=== PATIENT | female | born 1960 | race Caucasian/White ===

== ENCOUNTER → 2017-11-23 | Outpatient (CLI) | payer MEDICARE, OTHER ==
[~2017-11-23] MED LIST: ALBU3IS INH; ALBU90OI INH; ALBU90OI6 INH; ALBU90OI61 INH; AMIT25 PO; ARIP10 PO; ASPI81CH PO; ATIVAN; Albuterol2.5 MG/0.5 HHN; Amlodipine Bes2.5 MG PO; Ativan1 MG PO; BECL80OI INH; BENZ100A PO; BIEST TOP; Bactrim Ds Tab1 EACH PO; CARI350 PO; CITA20 PO; CLON.1 PO; CLON.2TP TP; CYCL10 PO; DILANTIN; DIPATR PO; DOCU100 PO; ESCI10 PO; Estrace Vagin42.5 GM VAG; FAMO20 PO; FLUSAL2505 IH; FLUT.05NI; HYDACE5 PO; HYDMOR2 PO; HYOS0.375T PO; IBUP600 PO; K-Dur20 MEQ PO; LANS30EC PO; LEVFLO500 PO; LEVSOD125 PO; LEVSOD50 PO; LEVSOD88 PO; LOMOTIL; LOPE2EL PO; LORA1 PO; LORA2 PO; Lomotil Tablet1 EACH PO; MECL25 PO; MEDICAL MARIJUANA; METCAR500 PO; METCAR750 PO; METO10 PO; METO25 PO; METO25ER PO; METO50 PO; METOPROLOL PO; MORP30 PO; MORP30ER PO; MORP60ER PO; NITR.4SL SL; NITRO; NITRSPRAY SL; Nitroglycerin0.4 MG SL; OMEP40CA12 PO; OXYACE7.5T PO; OXYB5 PO; OXYC10TA19 PO; OXYC5 PO; PHENY100ER PO; PRAZ1 PO; PRAZ2 PO; PRED20 PO; PREG50 PO; PROCODE120 PO; PROM25 PO; PROMETHAZINE; Prednisone20 MG PO; Symbicort 16010.2 GM IH; THIA100 PO; TRAZ150T57 PO; TRAZ50 PO; Toprol Xl25 MG PO; VAGIFEM10 MCG VAG; VENL150ER PO; Vibramycin100 MG PO; Zithromax250 MG PO; Zofran8 MG PO; [UNRECOGNIZED DRUG - OTHER]
[2017-11-23 13:27] LABS: Source, Urine Clean Catch
[2017-11-23 16:09] LABS: Bilirubin, Urine Neg (Neg); Blood, Urine Neg (Neg); Glucose Qualitative, Urine Neg (Neg); Ketones, Urine Neg (Neg); Leukocyte Esterase, Urine 1+ (Neg); Nitrite, Urine Neg (Neg); Protein, Urine Neg (Neg); Urobilinogen, Urine NORM (Normal); pH, Urine 6.5 (5.0-8.0)
[2017-11-23 16:14] LABS: Appearance, Urine Clear (Clear); Color, Urine Yellow (P-Yellow)
[2017-11-23 16:16] LABS: Bacteria Few /hpf; Red Blood Cells, Urine 0-2 /hpf (0-2); Squamous Epithelial Cells Few /hpf (Few)
== END | disposition home or self-care (01) ==
LOC: OLS 13:24
PROVIDERS: Internal Medicine
DX: N39.0 Urinary tract infection, site not specified (principal)
CPT/HCPCS: 81001; 87086

== ENCOUNTER 2017-11-24 05:35 | Emergency (ER) | payer MEDICARE, OTHER ==
[~2017-11-24] VITALS: Ht 154.9 cm; Wt 60.8 kg
[~2017-11-24 05:35] MED LIST changes: -ALBU3IS INH; -ALBU90OI6 INH; -Amlodipine Bes2.5 MG PO; -Ativan1 MG PO; -Bactrim Ds Tab1 EACH PO; -Estrace Vagin42.5 GM VAG; -IBUP600 PO; -K-Dur20 MEQ PO; -Lomotil Tablet1 EACH PO; -Nitroglycerin0.4 MG SL; -PREG50 PO; -THIA100 PO; -VAGIFEM10 MCG VAG; -VENL150ER PO
[2017-11-24] MEDS ORDERED: Bactrim Ds Tab1 EACH PO (06:12)
[2017-11-24] MEDS ORDERED: PREG50 PO (06:14)
[2017-11-24 07:04] LABS: Source, Urine Clean Catch
[2017-11-24 07:06] LABS: Bilirubin, Urine Neg (Neg); Blood, Urine Neg (Neg); Glucose Qualitative, Urine Neg (Neg); Ketones, Urine Neg (Neg); Leukocyte Esterase, Urine Neg (Neg); Nitrite, Urine Neg (Neg); Protein, Urine Neg (Neg); Specific Gravity, Urine 1.015 (1.003-1.022); Urobilinogen, Urine NORM (Normal)
[2017-11-24 07:12] LABS: Appearance, Urine Clear (Clear); Color, Urine Yellow (P-Yellow)
[2017-11-24 07:36] LABS: BASOPHILS ABSOLUTE AUTO 0.01 K/mm3 (0.00-0.23); BASOPHILS PERCENT AUTO 0 % (0-2); EOSINOPHILS ABSOLUTE AUTO 0.14 K/mm3 (0.00-0.68); EOSINOPHILS PERCENT AUTO 2 % (0-6); Hematocrit 38.5 % (33.0-51.0); Hemoglobin 13.1 g/dL (11.5-16.0); IMMATURE GRAN ABSOLUTE AUTO 0.01 K/mm3 (0.00-0.10); IMMATURE GRAN PERCENT AUTO 0 % (0-1); LYMPHOCYTES ABSOLUTE AUTO 0.45 K/mm3 (0.84-5.20); LYMPHOCYTES PERCENT AUTO 6 % (21-46); MONOCYTES ABSOLUTE AUTO 0.65 K/mm3 (0.16-1.47); MONOCYTES PERCENT AUTO 8 % (4-13); Mean Corpuscular HGB 29.8 pg (26.0-34.0); Mean Corpuscular Volume 88 fL (80-100); Mean Platelet Volume 11.4 fL (9.1-12.4); NEUTROPHILS ABSOLUTE AUTO 6.97 K/mm3 (1.96-9.15); NEUTROPHILS PERCENT AUTO 85 % (41-73); Platelet Count 143 K/mm3 (150-400); RDW Coefficient Variation 15.2 % (11.7-14.2); RDW Standard Deviation 49.1 fL (35.1-46.3); Red Blood Cell Count 4.39 M/mm3 (3.80-5.20); White Blood Cell Count 8.23 K/mm3 (4.00-11.30)
[2017-11-24 07:54] LABS: Alanine Aminotransfer (ALT/SGP 32 U/L (12-78); Albumin, Blood 3.7 g/dL (3.4-5.0); Albumin/Globulin Ratio 0.9 (0.8-1.8); Alk Phos 109 U/L (50-136); Anion Gap 8 mmol/L (6-16); Aspartate Aminotrans (AST/SGOT 27 U/L (12-37); Bilirubin, Total 0.5 mg/dL (0.1-1.0); Blood Urea Nitrogen 13 mg/dL (8-24); Bun/Creatinine Ratio 14.8 (12.0-20.0); CO2, Blood 25 mmol/L (21-32); Calcium, Blood 8.6 mg/dL (8.5-10.1); Chloride, Blood 99 mmol/L (98-108); Creatinine, Blood 0.88 mg/dL (0.40-1.00); Globulin, Blood 4.1 g/dL (2.2-4.0); Glomerular Filtration Rate >60 (60-); Glucose, Blood 112 mg/dL (70-99); Potassium, Blood 3.9 mmol/L (3.5-5.5); Sodium, Blood 132 mmol/L (136-145); Total Protein, Blood 7.8 g/dL (6.4-8.2)
[2018-09-03] MEDS ORDERED: METO25ER PO (10:47)
[2018-09-03] MEDS ORDERED: Amlodipine Bes2.5 MG PO (10:49)
[2018-09-03] MEDS ORDERED: K-Dur20 MEQ PO (10:50)
[2018-09-03] MEDS ORDERED: THIA100 PO (10:50)
[2018-09-03] MEDS ORDERED: PRAZ1 PO (10:51)
[2018-09-03] MEDS ORDERED: Estrace Vagin42.5 GM VAG (10:53)
[2018-09-03] MEDS ORDERED: VAGIFEM10 MCG VAG (10:53)
== END 2017-11-24 09:50 | disposition home or self-care (01) ==
LOC: ER 05:35
PROVIDERS: Emergency Medicine
DX: R51 Headache (principal); I10 Essential (primary) hypertension; K21.9 Gastro-esophageal reflux disease without esophagitis; J43.9 Emphysema, unspecified; F17.200 Nicotine dependence, unspecified, uncomplicated; Z90.710 Acquired absence of both cervix and uterus; Z88.0 Allergy status to penicillin; Z88.6 Allergy status to analgesic agent; Z88.5 Allergy status to narcotic agent; Z79.899 Other long term (current) drug therapy
CPT/HCPCS: 36415; 80053; 81003; 85025; 96360; 99283; J7030

== ENCOUNTER 2017-12-24 22:37 | Inpatient (IN) | payer MEDICARE, OTHER ==
[~2017-12-24] VITALS: Ht 154.9 cm; Wt 64.4 kg
[~2017-12-24 22:37] MED LIST changes: +Bactrim Ds Tab1 EACH PO; +PREG50 PO
[2017-12-25] LABS: BASOPHILS ABSOLUTE AUTO 0.04 K/mm3 (0.00-0.23); BASOPHILS PERCENT AUTO 1 % (0-2); EOSINOPHILS ABSOLUTE AUTO 0.14 K/mm3 (0.00-0.68); EOSINOPHILS PERCENT AUTO 2 % (0-6); Hematocrit 34.3 % (33.0-51.0); Hemoglobin 11.6 g/dL (11.5-16.0); IMMATURE GRAN ABSOLUTE AUTO 0.02 K/mm3 (0.00-0.10); IMMATURE GRAN PERCENT AUTO 0 % (0-1); LYMPHOCYTES ABSOLUTE AUTO 1.01 K/mm3 (0.84-5.20); LYMPHOCYTES PERCENT AUTO 12 % (21-46); MONOCYTES ABSOLUTE AUTO 0.54 K/mm3 (0.16-1.47); MONOCYTES PERCENT AUTO 6 % (4-13); Mean Corpuscular HGB 29.7 pg (26.0-34.0); Mean Corpuscular HGB Conc 33.8 g/dL (31.5-36.5); Mean Corpuscular Volume 88 fL (80-100); Mean Platelet Volume 11.3 fL (9.1-12.4); NEUTROPHILS ABSOLUTE AUTO 6.98 K/mm3 (1.96-9.15); NEUTROPHILS PERCENT AUTO 80 % (41-73); Platelet Count 117 K/mm3 (150-400); RDW Coefficient Variation 14.6 % (11.7-14.2); RDW Standard Deviation 46.9 fL (35.1-46.3); White Blood Cell Count 8.73 K/mm3 (4.00-11.30)
[2017-12-25 00:10] LABS: Source, Urine Catheter
[2017-12-25 00:10] LABS: International Normalized Ratio 1.06
[2017-12-25 00:13] LABS: Bilirubin, Urine Neg (Neg); Blood, Urine 1+ (Neg); Glucose Qualitative, Urine Neg (Neg); Ketones, Urine Neg (Neg); Leukocyte Esterase, Urine Neg (Neg); Nitrite, Urine Neg (Neg); Protein, Urine 1+ (Neg); Urobilinogen, Urine NORM (Normal)
[2017-12-25 00:19] LABS: Appearance, Urine Clear (Clear); Color, Urine Yellow (P-Yellow)
[2017-12-25 00:20] LABS: PCO2 Arterial 41.3 mmHg (35-45); PO2 Arterial 66.5 mmHg (80-100); pH Blood Arterial 7.41 (7.35-7.45)
[2017-12-25 00:20] LABS: Bacteria Mod /hpf; Red Blood Cells, Urine 0-2 /hpf (0-2); Squamous Epithelial Cells Not Seen /hpf (Few); White Blood Cells, Urine 0-2 /hpf (0-5)
[2017-12-25 00:21] LABS: Alanine Aminotransfer (ALT/SGP 41 U/L (12-78); Albumin, Blood 3.7 g/dL (3.4-5.0); Albumin/Globulin Ratio 0.8 (0.8-1.8); Alk Phos 102 U/L (50-136); Anion Gap 10 mmol/L (6-16); Aspartate Aminotrans (AST/SGOT 58 U/L (12-37); Bilirubin, Total 0.8 mg/dL (0.1-1.0); Blood Urea Nitrogen 13 mg/dL (8-24); Bun/Creatinine Ratio 17.2 (12.0-20.0); CO2, Blood 27 mmol/L (21-32); CPK Creatine Kinase 98 U/L (26-193); Calcium, Blood 8.6 mg/dL (8.5-10.1); Chloride, Blood 96 mmol/L (98-108); Creatinine, Blood 0.76 mg/dL (0.40-1.00); Ethanol (Alcohol), Blood, Med <3 mg/dL; Globulin, Blood 4.4 g/dL (2.2-4.0); Glomerular Filtration Rate >60 (60-); Glucose, Blood 102 mg/dL (70-99); Potassium, Blood 3.5 mmol/L (3.5-5.5); Salicylate 2.5 mg/dL (2.8-20.0); Sodium, Blood 133 mmol/L (136-145); Total Protein, Blood 8.1 g/dL (6.4-8.2); Troponin I <0.015 ng/mL (0.000-0.040)
[2017-12-25 00:25] LABS: Acetaminophen, Random <2.0 ug/mL (10.0-30.0); Dilantin (Phenytoin), Total <0.4 ug/mL (10.0-20.0)
[2017-12-25 00:28] LABS: U Amphetamine Screen Not Detected; U Barbituate Screen Not Detected; U Benzodiazapine Screen DETECTED; U Methamphetamine Screen Not Detected
[2017-12-25 00:29] LABS: U Buprenorphine Screen Not Detected; U Cannabinoids Screen DETECTED; U Cocaine Screen Not Detected; U Methadone Screen Not Detected; U Opiates Screen DETECTED; U Oxycodone Screen DETECTED; U Phencyclidine Screen Not Detected; U Propoxyphene Screen Not Detected
[2017-12-25 00:43] LABS: Influenza A Negative (NEGATIVE); Influenza B Negative (NEGATIVE)
[2017-12-25] MEDS ORDERED: VENL150ER PO (01:58)
[2017-12-25] MEDS ORDERED: IBUP600 PO (02:05)
[2017-12-25 12:18] LABS: Hematocrit 34.7 % (33.0-51.0); Hemoglobin 11.9 g/dL (11.5-16.0); Mean Corpuscular HGB 29.8 pg (26.0-34.0); Mean Corpuscular HGB Conc 34.3 g/dL (31.5-36.5); Mean Corpuscular Volume 87 fL (80-100); RDW Coefficient Variation 14.3 % (11.7-14.2); RDW Standard Deviation 46.1 fL (35.1-46.3); White Blood Cell Count 10.61 K/mm3 (4.00-11.30)
[2017-12-25 12:20] LABS: BASOPHILS ABSOLUTE AUTO 0.03 K/mm3 (0.00-0.23); BASOPHILS PERCENT AUTO 0 % (0-2); EOSINOPHILS ABSOLUTE AUTO 0.03 K/mm3 (0.00-0.68); EOSINOPHILS PERCENT AUTO 0 % (0-6); IMMATURE GRAN ABSOLUTE AUTO 0.04 K/mm3 (0.00-0.10); IMMATURE GRAN PERCENT AUTO 0 % (0-1); LYMPHOCYTES ABSOLUTE AUTO 1.11 K/mm3 (0.84-5.20); LYMPHOCYTES PERCENT AUTO 11 % (21-46); MONOCYTES ABSOLUTE AUTO 0.81 K/mm3 (0.16-1.47); MONOCYTES PERCENT AUTO 8 % (4-13); NEUTROPHILS ABSOLUTE AUTO 8.45 K/mm3 (1.96-9.15); NEUTROPHILS PERCENT AUTO 81 % (41-73)
[2017-12-25 12:23] LABS: Mean Platelet Volume 11.8 fL (9.1-12.4); Platelet Count 127 K/mm3 (150-400)
[2017-12-25 12:38] LABS: Alanine Aminotransfer (ALT/SGP 39 U/L (12-78); Albumin, Blood 3.3 g/dL (3.4-5.0); Albumin/Globulin Ratio 0.7 (0.8-1.8); Alk Phos 93 U/L (50-136); Anion Gap 9 mmol/L (6-16); Aspartate Aminotrans (AST/SGOT 40 U/L (12-37); Bilirubin, Total 0.8 mg/dL (0.1-1.0); Blood Urea Nitrogen 8 mg/dL (8-24); Bun/Creatinine Ratio 13.5 (12.0-20.0); CO2, Blood 27 mmol/L (21-32); Calcium, Blood 8.4 mg/dL (8.5-10.1); Chloride, Blood 101 mmol/L (98-108); Creatinine, Blood 0.59 mg/dL (0.40-1.00); Globulin, Blood 4.7 g/dL (2.2-4.0); Glomerular Filtration Rate >60 (60-); Glucose, Blood 118 mg/dL (70-99); Sodium, Blood 137 mmol/L (136-145)
[2017-12-26 05:06] LABS: BASOPHILS ABSOLUTE AUTO 0.01 K/mm3 (0.00-0.23); BASOPHILS PERCENT AUTO 0 % (0-2); EOSINOPHILS ABSOLUTE AUTO 0.01 K/mm3 (0.00-0.68); EOSINOPHILS PERCENT AUTO 0 % (0-6); Hemoglobin 12.8 g/dL (11.5-16.0); IMMATURE GRAN ABSOLUTE AUTO 0.02 K/mm3 (0.00-0.10); IMMATURE GRAN PERCENT AUTO 0 % (0-1); LYMPHOCYTES ABSOLUTE AUTO 1.33 K/mm3 (0.84-5.20); LYMPHOCYTES PERCENT AUTO 15 % (21-46); MONOCYTES ABSOLUTE AUTO 0.78 K/mm3 (0.16-1.47); MONOCYTES PERCENT AUTO 9 % (4-13); Mean Corpuscular HGB 29.6 pg (26.0-34.0); Mean Corpuscular HGB Conc 34.6 g/dL (31.5-36.5); Mean Corpuscular Volume 86 fL (80-100); Mean Platelet Volume 11.8 fL (9.1-12.4); NEUTROPHILS ABSOLUTE AUTO 6.53 K/mm3 (1.96-9.15); NEUTROPHILS PERCENT AUTO 75 % (41-73); Platelet Count 141 K/mm3 (150-400); RDW Coefficient Variation 13.9 % (11.7-14.2); RDW Standard Deviation 43.8 fL (35.1-46.3); Red Blood Cell Count 4.33 M/mm3 (3.80-5.20); White Blood Cell Count 8.68 K/mm3 (4.00-11.30)
[2017-12-26 05:22] LABS: Anion Gap 12 mmol/L (6-16); Blood Urea Nitrogen 6 mg/dL (8-24); CO2, Blood 24 mmol/L (21-32); Calcium, Blood 9.2 mg/dL (8.5-10.1); Chloride, Blood 98 mmol/L (98-108); Creatinine, Blood 0.54 mg/dL (0.40-1.00); Glomerular Filtration Rate >60 (60-); Glucose, Blood 120 mg/dL (70-99); Potassium, Blood 2.8 mmol/L (3.5-5.5); Sodium, Blood 134 mmol/L (136-145)
[2017-12-27 05:24] LABS: BASOPHILS ABSOLUTE AUTO 0.02 K/mm3 (0.00-0.23); BASOPHILS PERCENT AUTO 0 % (0-2); EOSINOPHILS ABSOLUTE AUTO 0.09 K/mm3 (0.00-0.68); EOSINOPHILS PERCENT AUTO 1 % (0-6); Hematocrit 34.8 % (33.0-51.0); Hemoglobin 12.1 g/dL (11.5-16.0); IMMATURE GRAN ABSOLUTE AUTO 0.02 K/mm3 (0.00-0.10); IMMATURE GRAN PERCENT AUTO 0 % (0-1); LYMPHOCYTES PERCENT AUTO 24 % (21-46); MONOCYTES ABSOLUTE AUTO 0.87 K/mm3 (0.16-1.47); MONOCYTES PERCENT AUTO 11 % (4-13); Mean Corpuscular HGB 30.2 pg (26.0-34.0); Mean Corpuscular HGB Conc 34.8 g/dL (31.5-36.5); Mean Corpuscular Volume 87 fL (80-100); Mean Platelet Volume 11.9 fL (9.1-12.4); NEUTROPHILS ABSOLUTE AUTO 5.04 K/mm3 (1.96-9.15); NEUTROPHILS PERCENT AUTO 63 % (41-73); Platelet Count 144 K/mm3 (150-400); RDW Coefficient Variation 14.2 % (11.7-14.2); RDW Standard Deviation 45.5 fL (35.1-46.3); Red Blood Cell Count 4.01 M/mm3 (3.80-5.20); White Blood Cell Count 7.94 K/mm3 (4.00-11.30)
[2017-12-27 05:51] LABS: Anion Gap 9 mmol/L (6-16); Blood Urea Nitrogen 9 mg/dL (8-24); Bun/Creatinine Ratio 11.7 (12.0-20.0); CO2, Blood 24 mmol/L (21-32); Calcium, Blood 8.7 mg/dL (8.5-10.1); Chloride, Blood 100 mmol/L (98-108); Creatinine, Blood 0.77 mg/dL (0.40-1.00); Glomerular Filtration Rate >60 (60-); Glucose, Blood 150 mg/dL (70-99); Magnesium, Blood 1.7 mg/dL (1.6-2.4); Potassium, Blood 3.1 mmol/L (3.5-5.5); Sodium, Blood 133 mmol/L (136-145)
[2017-12-27] MEDS ORDERED: LEVFLO500 PO (10:26)
[2018-09-03] MEDS ORDERED: METO25ER PO (10:47)
[2018-09-03] MEDS ORDERED: Amlodipine Bes2.5 MG PO (10:49)
[2018-09-03] MEDS ORDERED: K-Dur20 MEQ PO (10:50)
[2018-09-03] MEDS ORDERED: THIA100 PO (10:50)
[2018-09-03] MEDS ORDERED: PRAZ1 PO (10:51)
[2018-09-03] MEDS ORDERED: VAGIFEM10 MCG VAG (10:53)
[2018-09-03] MEDS ORDERED: Estrace Vagin42.5 GM VAG (10:53)
== END 2017-12-27 10:54 | disposition home or self-care (01) | DRG 871 ==
LOC: ER 22:37 → ICUW 12-25 00:33 → ICUE 12-25 00:33 → MEDS 12-25 12:21 → ENPENDDIS 12-27 09:00 → MEDS 12-27 10:54
PROVIDERS: Emergency Medicine; Internal Medicine
DX: A41.9 Sepsis, unspecified organism (principal); J18.9 Pneumonia, unspecified organism; G93.40 Encephalopathy, unspecified; F19.10 Other psychoactive substance abuse, uncomplicated; R65.20 Severe sepsis without septic shock; E87.6 Hypokalemia; I10 Essential (primary) hypertension; J44.9 Chronic obstructive pulmonary disease, unspecified; E03.9 Hypothyroidism, unspecified; K21.9 Gastro-esophageal reflux disease without esophagitis; G89.29 Other chronic pain; F17.210 Nicotine dependence, cigarettes, uncomplicated; Z74.09 Other reduced mobility; Z88.6 Allergy status to analgesic agent; Z88.5 Allergy status to narcotic agent; Z88.0 Allergy status to penicillin; Z88.8 Allergy status to other drugs, medicaments and biological substances; Z79.899 Other long term (current) drug therapy
CPT/HCPCS: 36415; 36600; 51702; 70450; 71045; 74176; 80048; 80053; 80185; 81001; 81025; 82140; 82550; 82803; 83605; 83735; 84145; 84443; 84484; 85025; 85610; 85730; 87040; 87086; 87804; 93005; 93010; 94640; 94667; 94668; 94760; 96360; 97116; 97161; 99285; G0480; G8978; G8979; J0696; J1630; J1650; J1956; J2405; J3010; J7030; J7040

== ENCOUNTER 2018-01-05 18:25 | Inpatient (IN) | payer MEDICARE, OTHER ==
[~2018-01-05] VITALS: Ht 154.9 cm; Wt 61.4 kg
[~2018-01-05 18:25] MED LIST changes: +IBUP600 PO; +VENL150ER PO
[2018-01-05 19:52] LABS: BASOPHILS ABSOLUTE AUTO 0.06 K/mm3 (0.00-0.23); BASOPHILS PERCENT AUTO 1 % (0-2); EOSINOPHILS ABSOLUTE AUTO 0.18 K/mm3 (0.00-0.68); EOSINOPHILS PERCENT AUTO 2 % (0-6); Hematocrit 38.3 % (33.0-51.0); Hemoglobin 12.8 g/dL (11.5-16.0); IMMATURE GRAN ABSOLUTE AUTO 0.05 K/mm3 (0.00-0.10); IMMATURE GRAN PERCENT AUTO 0 % (0-1); LYMPHOCYTES ABSOLUTE AUTO 2.62 K/mm3 (0.84-5.20); LYMPHOCYTES PERCENT AUTO 22 % (21-46); MONOCYTES ABSOLUTE AUTO 0.85 K/mm3 (0.16-1.47); MONOCYTES PERCENT AUTO 7 % (4-13); Mean Corpuscular HGB 29.8 pg (26.0-34.0); Mean Corpuscular HGB Conc 33.4 g/dL (31.5-36.5); Mean Corpuscular Volume 89 fL (80-100); Mean Platelet Volume 10.8 fL (9.1-12.4); NEUTROPHILS ABSOLUTE AUTO 8.18 K/mm3 (1.96-9.15); NEUTROPHILS PERCENT AUTO 69 % (41-73); Platelet Count 227 K/mm3 (150-400); RDW Coefficient Variation 14.3 % (11.7-14.2); RDW Standard Deviation 46.8 fL (35.1-46.3); Red Blood Cell Count 4.29 M/mm3 (3.80-5.20); White Blood Cell Count 11.94 K/mm3 (4.00-11.30)
[2018-01-05 20:16] LABS: Alanine Aminotransfer (ALT/SGP 28 U/L (12-78); Albumin, Blood 3.8 g/dL (3.4-5.0); Albumin/Globulin Ratio 0.8 (0.8-1.8); Alk Phos 96 U/L (50-136); Anion Gap 6 mmol/L (6-16); Aspartate Aminotrans (AST/SGOT 36 U/L (12-37); Bilirubin, Total 0.4 mg/dL (0.1-1.0); Blood Urea Nitrogen 12 mg/dL (8-24); Bun/Creatinine Ratio 14.3 (12.0-20.0); CO2, Blood 27 mmol/L (21-32); Calcium, Blood 8.9 mg/dL (8.5-10.1); Chloride, Blood 96 mmol/L (98-108); Creatinine, Blood 0.84 mg/dL (0.40-1.00); Globulin, Blood 4.7 g/dL (2.2-4.0); Glomerular Filtration Rate >60 (60-); Glucose, Blood 114 mg/dL (70-99); Potassium, Blood 4.1 mmol/L (3.5-5.5); Sodium, Blood 129 mmol/L (136-145); Total Protein, Blood 8.5 g/dL (6.4-8.2)
[2018-01-05 22:45] LABS: Source, Urine Catheter
[2018-01-05 22:50] LABS: Bilirubin, Urine Neg (Neg); Blood, Urine 1+ (Neg); Glucose Qualitative, Urine Neg (Neg); Ketones, Urine 1+ (Neg); Leukocyte Esterase, Urine Neg (Neg); Nitrite, Urine Neg (Neg); Protein, Urine 1+ (Neg); Urobilinogen, Urine NORM (Normal)
[2018-01-05 22:56] LABS: Appearance, Urine Clear (Clear); Bacteria Few /hpf; Color, Urine Yellow (P-Yellow); Red Blood Cells, Urine 0-2 /hpf (0-2); Squamous Epithelial Cells Not Seen /hpf (Few); White Blood Cells, Urine 0-2 /hpf (0-5)
[2018-01-06] MEDS ORDERED: ALBU3IS INH (00:30)
[2018-01-06] MEDS ORDERED: ALBU90OI6 INH (00:30)
[2018-01-06] MEDS ORDERED: Ativan1 MG PO (01:58)
[2018-01-06] MEDS ORDERED: Nitroglycerin0.4 MG SL (01:58)
[2018-01-06] MEDS ORDERED: Lomotil Tablet1 EACH PO (01:59)
[2018-01-06 05:35] LABS: BASOPHILS ABSOLUTE AUTO 0.05 K/mm3 (0.00-0.23); BASOPHILS PERCENT AUTO 0 % (0-2); EOSINOPHILS PERCENT AUTO 0 % (0-6); Hematocrit 41.5 % (33.0-51.0); Hemoglobin 14.3 g/dL (11.5-16.0); IMMATURE GRAN PERCENT AUTO 1 % (0-1); LYMPHOCYTES ABSOLUTE AUTO 1.32 K/mm3 (0.84-5.20); LYMPHOCYTES PERCENT AUTO 6 % (21-46); MONOCYTES ABSOLUTE AUTO 1.22 K/mm3 (0.16-1.47); MONOCYTES PERCENT AUTO 6 % (4-13); Mean Corpuscular HGB 29.4 pg (26.0-34.0); Mean Corpuscular HGB Conc 34.5 g/dL (31.5-36.5); NEUTROPHILS ABSOLUTE AUTO 19.53 K/mm3 (1.96-9.15); NEUTROPHILS PERCENT AUTO 88 % (41-73); Platelet Count 258 K/mm3 (150-400); RDW Coefficient Variation 13.7 % (11.7-14.2); RDW Standard Deviation 42.8 fL (35.1-46.3); Red Blood Cell Count 4.87 M/mm3 (3.80-5.20); White Blood Cell Count 22.22 K/mm3 (4.00-11.30)
[2018-01-06 05:39] LABS: Mean Corpuscular Volume 85 fL (80-100)
[2018-01-06 05:55] LABS: Alanine Aminotransfer (ALT/SGP 33 U/L (12-78); Albumin, Blood 3.6 g/dL (3.4-5.0); Albumin/Globulin Ratio 0.7 (0.8-1.8); Alk Phos 97 U/L (50-136); Anion Gap 8 mmol/L (6-16); Aspartate Aminotrans (AST/SGOT 37 U/L (12-37); Bilirubin, Total 0.5 mg/dL (0.1-1.0); Blood Urea Nitrogen 8 mg/dL (8-24); Bun/Creatinine Ratio 13.8 (12.0-20.0); CO2, Blood 24 mmol/L (21-32); Calcium, Blood 8.7 mg/dL (8.5-10.1); Chloride, Blood 94 mmol/L (98-108); Creatinine, Blood 0.58 mg/dL (0.40-1.00); Glomerular Filtration Rate >60 (60-); Glucose, Blood 164 mg/dL (70-99); Potassium, Blood 3.7 mmol/L (3.5-5.5); Sodium, Blood 126 mmol/L (136-145); Total Protein, Blood 8.6 g/dL (6.4-8.2)
[2018-01-06 18:42] LABS: Hematocrit 39.5 % (33.0-51.0); Hemoglobin 13.8 g/dL (11.5-16.0); Mean Corpuscular HGB 29.7 pg (26.0-34.0); Mean Corpuscular HGB Conc 34.9 g/dL (31.5-36.5); Mean Corpuscular Volume 85 fL (80-100); Mean Platelet Volume 10.7 fL (9.1-12.4); Platelet Count 258 K/mm3 (150-400); RDW Coefficient Variation 14.1 % (11.7-14.2); RDW Standard Deviation 43.8 fL (35.1-46.3); Red Blood Cell Count 4.65 M/mm3 (3.80-5.20); White Blood Cell Count 28.38 K/mm3 (4.00-11.30)
[2018-01-06 19:01] LABS: Anion Gap 10 mmol/L (6-16); Blood Urea Nitrogen 8 mg/dL (8-24); Bun/Creatinine Ratio 14.7 (12.0-20.0); CO2, Blood 22 mmol/L (21-32); Chloride, Blood 99 mmol/L (98-108); Creatinine, Blood 0.55 mg/dL (0.40-1.00); Glomerular Filtration Rate >60 (60-); Glucose, Blood 138 mg/dL (70-99); Potassium, Blood 3.7 mmol/L (3.5-5.5); Sodium, Blood 131 mmol/L (136-145)
[2018-01-07 04:25] LABS: Hematocrit 35.8 % (33.0-51.0); Hemoglobin 12.3 g/dL (11.5-16.0); Mean Corpuscular HGB 29.5 pg (26.0-34.0); Mean Corpuscular HGB Conc 34.4 g/dL (31.5-36.5); Mean Corpuscular Volume 86 fL (80-100); Platelet Count 224 K/mm3 (150-400); RDW Coefficient Variation 14.1 % (11.7-14.2); RDW Standard Deviation 43.9 fL (35.1-46.3); Red Blood Cell Count 4.17 M/mm3 (3.80-5.20); White Blood Cell Count 27.45 K/mm3 (4.00-11.30)
[2018-01-07 04:44] LABS: Anion Gap 9 mmol/L (6-16); Blood Urea Nitrogen 7 mg/dL (8-24); Bun/Creatinine Ratio 13.2 (12.0-20.0); CO2, Blood 22 mmol/L (21-32); Calcium, Blood 8.1 mg/dL (8.5-10.1); Chloride, Blood 102 mmol/L (98-108); Creatinine, Blood 0.53 mg/dL (0.40-1.00); Glomerular Filtration Rate >60 (60-); Glucose, Blood 146 mg/dL (70-99); Potassium, Blood 3.5 mmol/L (3.5-5.5); Sodium, Blood 133 mmol/L (136-145)
[2018-01-07 04:57] LABS: BAND PERCENT MAN 10 % (0-8); BASOPHILS PERCENT MAN 0 % (0-2); EOSINOPHILS PERCENT MAN 0 % (0-6); LYMPHOCYTES ABSOLUTE MAN 1.64 K/mm3 (0.84-5.20); LYMPHOCYTES PERCENT MAN 6 % (21-46); MONOCYTES ABSOLUTE MAN 0.54 K/mm3 (0.16-1.47); MONOCYTES PERCENT MAN 2 % (4-13); NEUTROPHILS ABSOLUTE MAN 25.25 K/mm3 (1.96-9.15); SEG NEUTROPHILS PERCENT MAN 82 % (41-73); TOTAL CELLS COUNTED 100
[2018-01-08 18:49] LABS: BASOPHILS ABSOLUTE AUTO 0.01 K/mm3 (0.00-0.23); BASOPHILS PERCENT AUTO 0 % (0-2); EOSINOPHILS ABSOLUTE AUTO 0.07 K/mm3 (0.00-0.68); EOSINOPHILS PERCENT AUTO 0 % (0-6); IMMATURE GRAN ABSOLUTE AUTO 0.08 K/mm3 (0.00-0.10); IMMATURE GRAN PERCENT AUTO 0 % (0-1); LYMPHOCYTES ABSOLUTE AUTO 1.12 K/mm3 (0.84-5.20); LYMPHOCYTES PERCENT AUTO 6 % (21-46); MONOCYTES ABSOLUTE AUTO 1.15 K/mm3 (0.16-1.47); MONOCYTES PERCENT AUTO 6 % (4-13); Mean Corpuscular HGB 29.3 pg (26.0-34.0); Mean Corpuscular HGB Conc 34.5 g/dL (31.5-36.5); Mean Corpuscular Volume 85 fL (80-100); Mean Platelet Volume 11.8 fL (9.1-12.4); NEUTROPHILS PERCENT AUTO 87 % (41-73); Platelet Count 226 K/mm3 (150-400); RDW Coefficient Variation 14.2 % (11.7-14.2); Red Blood Cell Count 3.41 M/mm3 (3.80-5.20); White Blood Cell Count 18.03 K/mm3 (4.00-11.30)
[2018-01-08 20:49] LABS: PCO2 Arterial 34.9 mmHg (35-45); PO2 Arterial 354 mmHg (80-100); pH Blood Arterial 7.54 (7.35-7.45)
[2018-01-08 21:29] LABS: BASOPHILS ABSOLUTE AUTO 0.02 K/mm3 (0.00-0.23); BASOPHILS PERCENT AUTO 0 % (0-2); EOSINOPHILS PERCENT AUTO 0 % (0-6); Hematocrit 24.7 % (33.0-51.0); Hemoglobin 8.6 g/dL (11.5-16.0); IMMATURE GRAN PERCENT AUTO 1 % (0-1); LYMPHOCYTES ABSOLUTE AUTO 0.65 K/mm3 (0.84-5.20); LYMPHOCYTES PERCENT AUTO 3 % (21-46); MONOCYTES ABSOLUTE AUTO 1.29 K/mm3 (0.16-1.47); MONOCYTES PERCENT AUTO 6 % (4-13); Mean Corpuscular HGB Conc 34.8 g/dL (31.5-36.5); Mean Corpuscular Volume 86 fL (80-100); Mean Platelet Volume 11.7 fL (9.1-12.4); NEUTROPHILS ABSOLUTE AUTO 19.29 K/mm3 (1.96-9.15); NEUTROPHILS PERCENT AUTO 90 % (41-73); Platelet Count 180 K/mm3 (150-400); RDW Coefficient Variation 14.4 % (11.7-14.2); RDW Standard Deviation 45.3 fL (35.1-46.3); Red Blood Cell Count 2.87 M/mm3 (3.80-5.20); White Blood Cell Count 21.55 K/mm3 (4.00-11.30)
[2018-01-08 21:42] LABS: International Normalized Ratio 1.4; Prothrombin Time Results 14.7 Sec (9.7-11.5)
[2018-01-08 21:48] LABS: Magnesium, Blood 2.2 mg/dL (1.6-2.4)
[2018-01-08 21:56] LABS: Bun/Creatinine Ratio 23.1 (12.0-20.0); Calcium, Blood 7.4 mg/dL (8.5-10.1); Creatinine, Blood 1.43 mg/dL (0.40-1.00); Phosphorus, Blood 1.6 mg/dL (2.5-4.9); Potassium, Blood 2.6 mmol/L (3.5-5.5)
[2018-01-09 04:59] LABS: BASOPHILS ABSOLUTE AUTO 0.01 K/mm3 (0.00-0.23); BASOPHILS PERCENT AUTO 0 % (0-2); EOSINOPHILS PERCENT AUTO 0 % (0-6); Hematocrit 21.5 % (33.0-51.0); Hemoglobin 7.5 g/dL (11.5-16.0); IMMATURE GRAN ABSOLUTE AUTO 0.13 K/mm3 (0.00-0.10); IMMATURE GRAN PERCENT AUTO 1 % (0-1); LYMPHOCYTES ABSOLUTE AUTO 1.21 K/mm3 (0.84-5.20); LYMPHOCYTES PERCENT AUTO 8 % (21-46); MONOCYTES ABSOLUTE AUTO 1.02 K/mm3 (0.16-1.47); MONOCYTES PERCENT AUTO 7 % (4-13); Mean Corpuscular HGB 29.8 pg (26.0-34.0); Mean Corpuscular HGB Conc 34.9 g/dL (31.5-36.5); Mean Corpuscular Volume 85 fL (80-100); Mean Platelet Volume 11.1 fL (9.1-12.4); NEUTROPHILS ABSOLUTE AUTO 12.46 K/mm3 (1.96-9.15); NEUTROPHILS PERCENT AUTO 84 % (41-73); Platelet Count 150 K/mm3 (150-400); RDW Coefficient Variation 14.3 % (11.7-14.2); RDW Standard Deviation 44.4 fL (35.1-46.3); Red Blood Cell Count 2.52 M/mm3 (3.80-5.20); White Blood Cell Count 14.83 K/mm3 (4.00-11.30)
[2018-01-09 05:28] LABS: Magnesium, Blood 2.4 mg/dL (1.6-2.4)
[2018-01-09 05:32] LABS: Albumin, Blood 2.5 g/dL (3.4-5.0); Anion Gap 10 mmol/L (6-16); Blood Urea Nitrogen 31 mg/dL (8-24); Bun/Creatinine Ratio 27.4 (12.0-20.0); CO2, Blood 27 mmol/L (21-32); Calcium, Blood 7.5 mg/dL (8.5-10.1); Chloride, Blood 110 mmol/L (98-108); Creatinine, Blood 1.13 mg/dL (0.40-1.00); Glomerular Filtration Rate 52 (60-); Glucose, Blood 128 mg/dL (70-99); Potassium, Blood 2.2 mmol/L (3.5-5.5); Sodium, Blood 147 mmol/L (136-145); Troponin I 0.912 ng/mL (0.000-0.040)
[2018-01-09 16:16] LABS: Hematocrit 20.4 % (33.0-51.0)
[2018-01-09 16:45] LABS: Phosphorus, Blood 1.2 mg/dL (2.5-4.9); Potassium, Blood 1.6 mmol/L (3.5-5.5)
[2018-01-10 00:25] LABS: Hematocrit 19.2 % (33.0-51.0); Hemoglobin 6.4 g/dL (11.5-16.0)
[2018-01-10 05:15] LABS: PCO2 Arterial 31.1 mmHg (35-45); PO2 Arterial 60.4 mmHg (80-100); pH Blood Arterial 7.49 (7.35-7.45)
[2018-01-10 05:37] LABS: BASOPHILS ABSOLUTE AUTO 0.01 K/mm3 (0.00-0.23); BASOPHILS PERCENT AUTO 0 % (0-2); EOSINOPHILS ABSOLUTE AUTO 0.02 K/mm3 (0.00-0.68); EOSINOPHILS PERCENT AUTO 0 % (0-6); Hematocrit 22.6 % (33.0-51.0); Hemoglobin 7.6 g/dL (11.5-16.0); IMMATURE GRAN ABSOLUTE AUTO 0.06 K/mm3 (0.00-0.10); IMMATURE GRAN PERCENT AUTO 1 % (0-1); LYMPHOCYTES ABSOLUTE AUTO 1.22 K/mm3 (0.84-5.20); LYMPHOCYTES PERCENT AUTO 14 % (21-46); MONOCYTES ABSOLUTE AUTO 0.73 K/mm3 (0.16-1.47); MONOCYTES PERCENT AUTO 8 % (4-13); Mean Corpuscular HGB 29.2 pg (26.0-34.0); Mean Corpuscular HGB Conc 33.6 g/dL (31.5-36.5); Mean Corpuscular Volume 87 fL (80-100); Mean Platelet Volume 10.8 fL (9.1-12.4); NEUTROPHILS ABSOLUTE AUTO 6.64 K/mm3 (1.96-9.15); NEUTROPHILS PERCENT AUTO 77 % (41-73); Platelet Count 140 K/mm3 (150-400); RDW Coefficient Variation 14.7 % (11.7-14.2); RDW Standard Deviation 46.5 fL (35.1-46.3); White Blood Cell Count 8.68 K/mm3 (4.00-11.30)
[2018-01-10 06:09] LABS: Magnesium, Blood 2.4 mg/dL (1.6-2.4)
[2018-01-10 06:14] LABS: Albumin, Blood 2.3 g/dL (3.4-5.0); Anion Gap 10 mmol/L (6-16); Blood Urea Nitrogen 14 mg/dL (8-24); CO2, Blood 23 mmol/L (21-32); Calcium, Blood 6.8 mg/dL (8.5-10.1); Chloride, Blood 122 mmol/L (98-108); Creatinine, Blood 0.67 mg/dL (0.40-1.00); Glomerular Filtration Rate >60 (60-); Glucose, Blood 128 mg/dL (70-99); Phosphorus, Blood 3.4 mg/dL (2.5-4.9); Potassium, Blood 3.2 mmol/L (3.5-5.5); Sodium, Blood 155 mmol/L (136-145)
[2018-01-10 07:04] LABS: Anion Gap 9 mmol/L (6-16); Blood Urea Nitrogen 14 mg/dL (8-24); Bun/Creatinine Ratio 19.9 (12.0-20.0); CO2, Blood 24 mmol/L (21-32); Calcium, Blood 6.8 mg/dL (8.5-10.1); Chloride, Blood 123 mmol/L (98-108); Creatinine, Blood 0.71 mg/dL (0.40-1.00); Glomerular Filtration Rate >60 (60-); Glucose, Blood 124 mg/dL (70-99); Potassium, Blood 3.3 mmol/L (3.5-5.5); Sodium, Blood 156 mmol/L (136-145)
[2018-01-10 09:02] LABS: Vancomycin, Trough 11.7 ug/mL (5.0-10.0)
[2018-01-10 15:01] LABS: Hemoglobin 7.7 g/dL (11.5-16.0)
[2018-01-10 15:17] LABS: Phosphorus, Blood 1.2 mg/dL (2.5-4.9); Potassium, Blood 3.4 mmol/L (3.5-5.5)
[2018-01-11 04:12] LABS: BASOPHILS ABSOLUTE AUTO 0.01 K/mm3 (0.00-0.23); BASOPHILS PERCENT AUTO 0 % (0-2); EOSINOPHILS ABSOLUTE AUTO 0.38 K/mm3 (0.00-0.68); EOSINOPHILS PERCENT AUTO 4 % (0-6); Hematocrit 23.3 % (33.0-51.0); Hemoglobin 7.7 g/dL (11.5-16.0); IMMATURE GRAN ABSOLUTE AUTO 0.07 K/mm3 (0.00-0.10); IMMATURE GRAN PERCENT AUTO 1 % (0-1); LYMPHOCYTES ABSOLUTE AUTO 1.77 K/mm3 (0.84-5.20); LYMPHOCYTES PERCENT AUTO 18 % (21-46); MONOCYTES ABSOLUTE AUTO 0.76 K/mm3 (0.16-1.47); MONOCYTES PERCENT AUTO 8 % (4-13); Mean Corpuscular HGB 29.4 pg (26.0-34.0); Mean Corpuscular Volume 89 fL (80-100); Mean Platelet Volume 11.1 fL (9.1-12.4); NEUTROPHILS ABSOLUTE AUTO 6.66 K/mm3 (1.96-9.15); NEUTROPHILS PERCENT AUTO 69 % (41-73); NRBC ABSOLUTE 0.05 K/mm3 (0.00-0.02); NRBC Auto 0.5 /100 WBC (0.0-0.2); Platelet Count 151 K/mm3 (150-400); RDW Coefficient Variation 15.5 % (11.7-14.2); RDW Standard Deviation 49.7 fL (35.1-46.3); Red Blood Cell Count 2.62 M/mm3 (3.80-5.20); White Blood Cell Count 9.65 K/mm3 (4.00-11.30)
[2018-01-11 04:28] LABS: Albumin, Blood 2.3 g/dL (3.4-5.0); Anion Gap 8 mmol/L (6-16); Blood Urea Nitrogen 9 mg/dL (8-24); Bun/Creatinine Ratio 13.3 (12.0-20.0); CO2, Blood 24 mmol/L (21-32); Calcium, Blood 7.4 mg/dL (8.5-10.1); Chloride, Blood 121 mmol/L (98-108); Creatinine, Blood 0.68 mg/dL (0.40-1.00); Glomerular Filtration Rate >60 (60-); Glucose, Blood 130 mg/dL (70-99); Magnesium, Blood 2.1 mg/dL (1.6-2.4); Phosphorus, Blood 2.4 mg/dL (2.5-4.9); Potassium, Blood 3.4 mmol/L (3.5-5.5); Sodium, Blood 153 mmol/L (136-145)
[2018-01-11 05:35] LABS: PCO2 Arterial 29.9 mmHg (35-45); PO2 Arterial 58.2 mmHg (80-100); pH Blood Arterial 7.47 (7.35-7.45)
[2018-01-12 03:59] LABS: BASOPHILS ABSOLUTE AUTO 0.02 K/mm3 (0.00-0.23); BASOPHILS PERCENT AUTO 0 % (0-2); EOSINOPHILS ABSOLUTE AUTO 0.63 K/mm3 (0.00-0.68); EOSINOPHILS PERCENT AUTO 6 % (0-6); Hematocrit 28.1 % (33.0-51.0); Hemoglobin 9.5 g/dL (11.5-16.0); IMMATURE GRAN ABSOLUTE AUTO 0.12 K/mm3 (0.00-0.10); IMMATURE GRAN PERCENT AUTO 1 % (0-1); LYMPHOCYTES ABSOLUTE AUTO 1.79 K/mm3 (0.84-5.20); LYMPHOCYTES PERCENT AUTO 17 % (21-46); MONOCYTES ABSOLUTE AUTO 0.99 K/mm3 (0.16-1.47); MONOCYTES PERCENT AUTO 9 % (4-13); Mean Corpuscular HGB 29.4 pg (26.0-34.0); Mean Corpuscular HGB Conc 33.8 g/dL (31.5-36.5); Mean Corpuscular Volume 87 fL (80-100); Mean Platelet Volume 10.8 fL (9.1-12.4); NEUTROPHILS ABSOLUTE AUTO 7.11 K/mm3 (1.96-9.15); NEUTROPHILS PERCENT AUTO 67 % (41-73); NRBC ABSOLUTE 0.02 K/mm3 (0.00-0.02); NRBC Auto 0.2 /100 WBC (0.0-0.2); Platelet Count 192 K/mm3 (150-400); RDW Coefficient Variation 14.9 % (11.7-14.2); RDW Standard Deviation 46.7 fL (35.1-46.3); Red Blood Cell Count 3.23 M/mm3 (3.80-5.20); White Blood Cell Count 10.66 K/mm3 (4.00-11.30)
[2018-01-12 04:14] LABS: Magnesium, Blood 1.6 mg/dL (1.6-2.4)
[2018-01-12 04:32] LABS: Anion Gap 9 mmol/L (6-16); Blood Urea Nitrogen 5 mg/dL (8-24); Bun/Creatinine Ratio 7.6 (12.0-20.0); CO2, Blood 28 mmol/L (21-32); Calcium, Blood 7.6 mg/dL (8.5-10.1); Chloride, Blood 106 mmol/L (98-108); Creatinine, Blood 0.66 mg/dL (0.40-1.00); Glomerular Filtration Rate >60 (60-); Glucose, Blood 115 mg/dL (70-99); Phosphorus, Blood 2.3 mg/dL (2.5-4.9)
[2018-01-12 04:33] LABS: Sodium, Blood 143 mmol/L (136-145)
[2018-01-12 04:50] LABS: PO2 Arterial 94.6 mmHg (80-100); pH Blood Arterial 7.52 (7.35-7.45)
[2018-01-12 08:22] LABS: Vancomycin, Trough 15.2 ug/mL (5.0-10.0)
[2018-01-13 04:14] LABS: BASOPHILS ABSOLUTE AUTO 0.01 K/mm3 (0.00-0.23); BASOPHILS PERCENT AUTO 0 % (0-2); EOSINOPHILS ABSOLUTE AUTO 0.39 K/mm3 (0.00-0.68); EOSINOPHILS PERCENT AUTO 5 % (0-6); Hematocrit 26.4 % (33.0-51.0); IMMATURE GRAN ABSOLUTE AUTO 0.09 K/mm3 (0.00-0.10); IMMATURE GRAN PERCENT AUTO 1 % (0-1); LYMPHOCYTES ABSOLUTE AUTO 1.71 K/mm3 (0.84-5.20); LYMPHOCYTES PERCENT AUTO 22 % (21-46); MONOCYTES ABSOLUTE AUTO 0.94 K/mm3 (0.16-1.47); MONOCYTES PERCENT AUTO 12 % (4-13); Mean Corpuscular HGB 29.6 pg (26.0-34.0); Mean Corpuscular HGB Conc 34.1 g/dL (31.5-36.5); Mean Corpuscular Volume 87 fL (80-100); NEUTROPHILS ABSOLUTE AUTO 4.77 K/mm3 (1.96-9.15); NEUTROPHILS PERCENT AUTO 60 % (41-73); Platelet Count 197 K/mm3 (150-400); RDW Standard Deviation 47.1 fL (35.1-46.3); Red Blood Cell Count 3.04 M/mm3 (3.80-5.20); White Blood Cell Count 7.91 K/mm3 (4.00-11.30)
[2018-01-13 04:31] LABS: Anion Gap 10 mmol/L (6-16); Blood Urea Nitrogen 7 mg/dL (8-24); Bun/Creatinine Ratio 10.4 (12.0-20.0); CO2, Blood 27 mmol/L (21-32); Calcium, Blood 7.5 mg/dL (8.5-10.1); Chloride, Blood 106 mmol/L (98-108); Creatinine, Blood 0.67 mg/dL (0.40-1.00); Glomerular Filtration Rate >60 (60-); Glucose, Blood 103 mg/dL (70-99); Magnesium, Blood 1.8 mg/dL (1.6-2.4); Phosphorus, Blood 2.6 mg/dL (2.5-4.9); Potassium, Blood 3.2 mmol/L (3.5-5.5); Sodium, Blood 143 mmol/L (136-145)
[2018-01-14 12:33] LABS: Anion Gap 8 mmol/L (6-16); Blood Urea Nitrogen 8 mg/dL (8-24); Bun/Creatinine Ratio 12.2 (12.0-20.0); CO2, Blood 23 mmol/L (21-32); Calcium, Blood 8.1 mg/dL (8.5-10.1); Chloride, Blood 108 mmol/L (98-108); Creatinine, Blood 0.66 mg/dL (0.40-1.00); Glomerular Filtration Rate >60 (60-); Glucose, Blood 103 mg/dL (70-99); Potassium, Blood 3.9 mmol/L (3.5-5.5); Sodium, Blood 139 mmol/L (136-145)
[2018-01-15 05:52] LABS: BASOPHILS ABSOLUTE AUTO 0.01 K/mm3 (0.00-0.23); BASOPHILS PERCENT AUTO 0 % (0-2); EOSINOPHILS ABSOLUTE AUTO 0.44 K/mm3 (0.00-0.68); EOSINOPHILS PERCENT AUTO 5 % (0-6); Hematocrit 25.7 % (33.0-51.0); Hemoglobin 8.7 g/dL (11.5-16.0); IMMATURE GRAN ABSOLUTE AUTO 0.15 K/mm3 (0.00-0.10); IMMATURE GRAN PERCENT AUTO 2 % (0-1); LYMPHOCYTES PERCENT AUTO 21 % (21-46); MONOCYTES ABSOLUTE AUTO 1.32 K/mm3 (0.16-1.47); MONOCYTES PERCENT AUTO 15 % (4-13); Mean Corpuscular HGB 29.7 pg (26.0-34.0); Mean Corpuscular HGB Conc 33.9 g/dL (31.5-36.5); Mean Corpuscular Volume 88 fL (80-100); Mean Platelet Volume 10.8 fL (9.1-12.4); NEUTROPHILS ABSOLUTE AUTO 5.01 K/mm3 (1.96-9.15); NEUTROPHILS PERCENT AUTO 58 % (41-73); Platelet Count 247 K/mm3 (150-400); RDW Standard Deviation 49.4 fL (35.1-46.3); Red Blood Cell Count 2.93 M/mm3 (3.80-5.20); White Blood Cell Count 8.73 K/mm3 (4.00-11.30)
[2018-01-15 06:06] LABS: Anion Gap 8 mmol/L (6-16); Blood Urea Nitrogen 7 mg/dL (8-24); Bun/Creatinine Ratio 11.1 (12.0-20.0); CO2, Blood 24 mmol/L (21-32); Calcium, Blood 8.1 mg/dL (8.5-10.1); Chloride, Blood 109 mmol/L (98-108); Creatinine, Blood 0.63 mg/dL (0.40-1.00); Glomerular Filtration Rate >60 (60-); Glucose, Blood 119 mg/dL (70-99); Potassium, Blood 3.6 mmol/L (3.5-5.5); Sodium, Blood 141 mmol/L (136-145)
[2018-09-03] MEDS ORDERED: METO25ER PO (10:47)
[2018-09-03] MEDS ORDERED: Amlodipine Bes2.5 MG PO (10:49)
[2018-09-03] MEDS ORDERED: K-Dur20 MEQ PO (10:50)
[2018-09-03] MEDS ORDERED: THIA100 PO (10:50)
[2018-09-03] MEDS ORDERED: PRAZ1 PO (10:51)
[2018-09-03] MEDS ORDERED: VAGIFEM10 MCG VAG (10:53)
[2018-09-03] MEDS ORDERED: Estrace Vagin42.5 GM VAG (10:53)
== END 2018-01-17 11:35 | DRG 853 ==
LOC: ER 18:25 → SURS 22:49 → ER 23:52 → SURS 01-06 00:38 → PCU 01-07 08:19 → ICUE 01-08 19:21 → SURS 01-13 16:16
PROVIDERS: Emergency Medicine; Internal Medicine; Internal Medicine Critical Care Medicine; Surgery
PROC: 0DTJ0ZZ Resection of Appendix, Open Approach (ICD-10-PCS; principal; 2018-01-06 12:15)
PROC: 0DTF0ZZ Resection of Right Large Intestine, Open Approach (ICD-10-PCS; principal; 2018-01-06 12:15)
PROC: 0BH17EZ Insertion of Endotracheal Airway into Trachea, Via Natural or Artificial Opening (ICD-10-PCS; 2018-01-08)
PROC: 02HV33Z Insertion of Infusion Device into Superior Vena Cava, Percutaneous Approach (ICD-10-PCS; 2018-01-08)
PROC: 30233N1 Transfusion of Nonautologous Red Blood Cells into Peripheral Vein, Percutaneous Approach (ICD-10-PCS; 2018-01-08)
PROC: 5A1945Z Respiratory Ventilation, 24-96 Consecutive Hours (ICD-10-PCS; 2018-01-08)
DX: A41.9 Sepsis, unspecified organism (principal); K56.2 Volvulus; K55.039 Acute (reversible) ischemia of large intestine, extent unspecified; J95.821 Acute postprocedural respiratory failure; J69.0 Pneumonitis due to inhalation of food and vomit; G93.41 Metabolic encephalopathy; I97.121 Postprocedural cardiac arrest following other surgery; E87.0 Hyperosmolality and hypernatremia; D62 Acute posthemorrhagic anemia; K56.7 Ileus, unspecified; R65.20 Severe sepsis without septic shock; E87.6 Hypokalemia; F17.210 Nicotine dependence, cigarettes, uncomplicated; Z79.891 Long term (current) use of opiate analgesic; J44.9 Chronic obstructive pulmonary disease, unspecified; B19.20 Unspecified viral hepatitis C without hepatic coma; I10 Essential (primary) hypertension; E03.9 Hypothyroidism, unspecified; G89.4 Chronic pain syndrome; R26.89 Other abnormalities of gait and mobility
CPT/HCPCS: 31720; 36415; 36430; 36556; 36600; 51702; 51798; 70450; 71045; 71046; 74176; 74177; 80048; 80053; 80069; 80202; 81001; 82140; 82803; 82947; 83605; 83690; 83735; 84100; 84132; 84295; 84484; 85014; 85018; 85025; 85027; 85610; 85730; 86850; 86900; 86901; 86920; 87070; 87205; 88307; 92526; 92610; 93005; 93010; 93306; 94002; 94003; 94640; 94667; 94760; 94762; 96374; 96375; 96376; 97110; 97116; 97162; 97166; 97530; 97535; 99285; C1751; C1762; C9113; G0515; G8978; G8979; G8987; G8988; G8996; G8997; G8998; J0360; J1170; J1650; J1940; J1953; J1956; J2060; J2250; J2405; J2710; J3010; J3370; J3411; J3480; J7030; J7040; J7042; J7050; J7070; J7120; P9016; P9041; Q9967

== ENCOUNTER 2018-11-14 02:48 | Observation (INO) | payer MEDICARE, OTHER ==
[~2018-11-14] VITALS: Ht 157.5 cm; Wt 63.5 kg
[~2018-11-14 02:48] MED LIST changes: +ALBU2.5V5 NEB; +ALBU3IS INH; +ALBU90OI6 INH; +Amlodipine Bes2.5 MG PO; +Ativan1 MG PO; +BUDE6HFA INH; +BUSP15 PO; +Estrace Vagin42.5 GM; +Estrace Vagin42.5 GM VAG; +IBUP800 PO; +K-Dur20 MEQ; +K-Dur20 MEQ PO; +LEVO-T25 MCG PO; +Lomotil Tablet1 EACH PO; +METO100ER PO; +METO50ER PO; +Nitroglycerin0.4 MG SL; +Robaxin500 MG PO; +THIA100 PO; +TRAZ100 PO; +VAGIFEM10 MCG VAG; +VAGIFEM10 MCG VG; +VENL75ER PO
[2018-11-14 05:13] LABS: BASOPHILS ABSOLUTE AUTO 0.04 K/mm3 (0.00-0.23); BASOPHILS PERCENT AUTO 1 % (0-2); EOSINOPHILS ABSOLUTE AUTO 0.17 K/mm3 (0.00-0.68); EOSINOPHILS PERCENT AUTO 2 % (0-6); Hematocrit 38.8 % (33.0-51.0); Hemoglobin 12.2 g/dL (11.5-16.0); IMMATURE GRAN ABSOLUTE AUTO 0.02 K/mm3 (0.00-0.10); IMMATURE GRAN PERCENT AUTO 0 % (0-1); LYMPHOCYTES ABSOLUTE AUTO 1.63 K/mm3 (0.84-5.20); LYMPHOCYTES PERCENT AUTO 19 % (21-46); MONOCYTES ABSOLUTE AUTO 0.55 K/mm3 (0.16-1.47); MONOCYTES PERCENT AUTO 6 % (4-13); Mean Corpuscular HGB Conc 31.4 g/dL (31.5-36.5); Mean Corpuscular Volume 83 fL (80-100); Mean Platelet Volume 12.3 fL (9.1-12.4); NEUTROPHILS PERCENT AUTO 73 % (41-73); Platelet Count 157 K/mm3 (150-400); RDW Coefficient Variation 17.2 % (11.7-14.2); RDW Standard Deviation 52.4 fL (35.1-46.3); White Blood Cell Count 8.81 K/mm3 (4.00-11.30)
[2018-11-14 05:16] LABS: BASOPHILS ABSOLUTE AUTO 0.05 K/mm3 (0.00-0.23); BASOPHILS PERCENT AUTO 1 % (0-2); EOSINOPHILS ABSOLUTE AUTO 0.17 K/mm3 (0.00-0.68); EOSINOPHILS PERCENT AUTO 2 % (0-6); Hematocrit 38.8 % (33.0-51.0); Hemoglobin 12.1 g/dL (11.5-16.0); IMMATURE GRAN ABSOLUTE AUTO 0.03 K/mm3 (0.00-0.10); IMMATURE GRAN PERCENT AUTO 0 % (0-1); LYMPHOCYTES ABSOLUTE AUTO 1.62 K/mm3 (0.84-5.20); LYMPHOCYTES PERCENT AUTO 18 % (21-46); MONOCYTES ABSOLUTE AUTO 0.56 K/mm3 (0.16-1.47); MONOCYTES PERCENT AUTO 6 % (4-13); Mean Corpuscular HGB 26.3 pg (26.0-34.0); Mean Corpuscular HGB Conc 31.2 g/dL (31.5-36.5); Mean Corpuscular Volume 84 fL (80-100); NEUTROPHILS ABSOLUTE AUTO 6.43 K/mm3 (1.96-9.15); NEUTROPHILS PERCENT AUTO 73 % (41-73); Platelet Count 141 K/mm3 (150-400); RDW Coefficient Variation 17.3 % (11.7-14.2); RDW Standard Deviation 53.5 fL (35.1-46.3); White Blood Cell Count 8.86 K/mm3 (4.00-11.30)
[2018-11-14 05:26] LABS: International Normalized Ratio 1.09; Prothrombin Time Results 11.2 Sec (9.7-11.5)
[2018-11-14 05:27] LABS: Mean Platelet Volume 11.8 fL (9.1-12.4)
[2018-11-14 05:53] LABS: Anion Gap 6 mmol/L (6-16); Blood Urea Nitrogen 7 mg/dL (8-24); CO2, Blood 26 mmol/L (21-32); Calcium, Blood 8.6 mg/dL (8.5-10.1); Chloride, Blood 108 mmol/L (98-108); Creatinine, Blood 0.88 mg/dL (0.40-1.00); Glomerular Filtration Rate >60 (60-); Glucose, Blood 113 mg/dL (70-99); Potassium, Blood 4.1 mmol/L (3.5-5.5); Sodium, Blood 140 mmol/L (136-145)
[2018-11-14 05:58] LABS: Alanine Aminotransfer (ALT/SGP 12 U/L (12-78); Albumin, Blood 2.9 g/dL (3.4-5.0); Albumin/Globulin Ratio 0.6 (0.8-1.8); Alk Phos 154 U/L (50-136); Anion Gap 5 mmol/L (6-16); Aspartate Aminotrans (AST/SGOT 17 U/L (12-37); Bilirubin, Total 0.6 mg/dL (0.1-1.0); Blood Urea Nitrogen 6 mg/dL (8-24); Bun/Creatinine Ratio 6.7 (12.0-20.0); CO2, Blood 26 mmol/L (21-32); Calcium, Blood 8.6 mg/dL (8.5-10.1); Chloride, Blood 109 mmol/L (98-108); Globulin, Blood 4.9 g/dL (2.2-4.0); Glomerular Filtration Rate >60 (60-); Glucose, Blood 114 mg/dL (70-99); Potassium, Blood 4.2 mmol/L (3.5-5.5); Sodium, Blood 140 mmol/L (136-145); Total Protein, Blood 7.8 g/dL (6.4-8.2)
--- NOTE | 2018-11-14 08:21 | NUR ---
SUMMARY PT ADMITTED THIS AM S/P FX. SEE ADMIT HX AND ASSESSMENT. PT ALERT. MEDICATED IV X1 FOR PAIN. PAT REQUESTING GIVE FURTHER INFO REGARDING MEDS THIS AM.
--- NOTE | 2018-11-14 11:09 | NUR ---
PT LEFT ROOM TO GO TO OR FOR SURGERY
[2018-11-14] MEDS ORDERED: Gas-X125 M1 PO (16:09)
[2018-11-14] MEDS ORDERED: PREG300 PO (16:13)
--- NOTE | 2018-11-14 16:14 | NUR ---
SHIFT SUMMARY PT A&OX4, VSS, S/P R TIB ORIF, SPLINT, JOLEEN WRAP, ELEVATED, WIGGLES TOES, DENIES N&T. PAIN MANAGED PER EMAR. RESTING COMFORTABLY AT THIS TIME. WILL CTM & TX PER EMAR UNTIL REPORT GIVEN TO NEXT RN.
--- NOTE | 2018-11-14 18:03 | NUR ---
TELEPHONE CALL TO SURGEON, CHANGED PAIN MED ORDER FROM [facility] TO OXYCODONE 5-10 MG Q4H PRN PAIN.
--- NOTE | 2018-11-14 18:04 | NUR ---
TELEPHONE CALL WITH HOSPITALIST, RECEIVED 1X ORDER FOR 1000 MLS D5 1/2 20MEQ @ 75 MLS/HR SINCE PT IS SLEEPING AND NOT TAKING IN PO FLUIDS. PT'S REQUESTED RESTART OF LYRICA 300 MG TID FOR SEIZURES. I REQUESTED MED LIST FROM [facility], BUT HOSPITALIST WANTS A LIST FROM PCP DR MORALES TO CONFIRM MEDS & DOSES WHEN OFFICE OPENS ON THURSDAY PRIOR TO HOME MEDS BEING RESTARTED.
--- NOTE | 2018-11-15 03:03 | NUR ---
PT STATES NEEDS TO VOID BUT UNABLE, BLADDER SCAN SHOWS >800. IN OUT CATH DONE AND OBTAINED 950 URINE OUT. PT ALERT AND WAS MEDICATED FOR PAIN AND GIVEN PEPSI AND SNACK. WATCHING TV. NO C/O
--- NOTE | 2018-11-15 05:40 | NUR ---
POD 1 S/P RIGHT TIB ORIF. DID WELL AND SLEPT MOST OF NIGHT. ONLY MEDICATED ONCE DURING NIGHT CAUSE OF DROWSINESS. WASNT ABLE TO VOID ENOUGH SO DID NEED TO BE ST CATH'D. SPLINTED RLE IS INTACT WITH SOME SCANT BLEEDING NOTED TO ANDKLE AREA. ABLE TO WIGGLE TOES. PLAN TODAY FOR INCREASING MOBILITY WITH PT/OT. CALL LIGHT IN REACH.
--- NOTE | 2018-11-15 08:20 | NUR ---
EDITED TIMES FROM CHART RECORD FOR PURPOSES OF VERIFICATION.
--- NOTE | 2018-11-15 09:09 | NUR ---
PT RECENTLY WORKED WITH THERAPY. PT REPORTED TO BE UP IN CHAIR WITH ALARM IN PLACE PT IS CONFUSED AT TIMES.
--- NOTE | 2018-11-15 09:22 | NUR ---
Pt was eating breakfast as we exchanged greetings. Pt appeared to be in good spirits and talks about the challenges of her daughter's and her own diet restrictions. Pt open to prayer and a supplication was supplied for God's presence and healing. PT verbalized gratitude for the intervention. I will remain available.
--- NOTE | 2018-11-15 10:05 | NUR ---
DR MCGILL HERE TO SEE PT. DISCUSSED PT'S STATUS. PT UP IN CHAIR, TAB ALARM IN PLACE.
--- NOTE | 2018-11-15 11:21 | NUR ---
THERAPY IN ROOM TO WORK WITH PT.
--- NOTE | 2018-11-15 12:08 | NUR ---
DR SERRANO RECENTLY HERE. THERAPY WAS IN ROOM WELL FAMILY. DISCUSSED PT'S STATUS INCLUDING PT'S CONFUSION WHICH REPORTS PT IS CONFUSED AT TIMES AT BASELINE. DR SERRANO WROTE SCRIPTS. COPIES MADE, SCRIPTS GIVEN TO FOR HIM TO GET EQUIP IF ABLE TODAY.
--- NOTE | 2018-11-15 18:11 | NUR ---
PT FAMILY CONCERN OF PT HAVING INCREASED CONFUSION AND REQUEST TO TALK WITH . DR MCGILL NOTIFIED. PT EYES PERRLA. NO LUMP OR BRUISING NOTED TO PT'S HEAD OR NECK. PT HAS NO HEADACHE. DR MCGILL CAME TO SEE PT, FAMILY PRESENT. PT DENIES ANY DIZZINESS OR LIGHTHEADEDNESS.
--- NOTE | 2018-11-15 18:22 | NUR ---
SHIFT SUMMARY PT EATING AND DRINKING. PT VOIDING. PT HAD BM EARLIER TODAY. PT BEEN ASSISTED WITH ADL'S PRN. PT MED FOR PAIN, DISCUSSED PAIN MGMT, NARCOTICS WITH PT AND FAMILY REPORTING THAT PT APPEARS "MORE CONFUSED THAN NORMAL". DR MCGILL BEEN TO SEE PT WHILE FAMILY PRESENT. PT EATING WITHOUT DIFF. ALARM IN PLACE. PT WORKED WITH THERAPY, DID NOT CLEAR TO GO HOME TODAY. RLE BEEN ELEVATED T/O SHIFT.
--- NOTE | 2018-11-16 08:00 | NUR ---
PT FOLLOWS COMMANDS WITH DELAY. FLAT EFFECT. STATES NOT SURE IF CAN LEAVE GLASSES ON TABLE, WE MAY STEAL THEM. STATES I WAS TALKING HER SISTER ABOUT HER. ADVISED WAS OUT OF ROOM TALKING TO MALE DOCTOR. SHE REFUSED TO BELIEVE. DEFENSIVE. SLOW TO RESPOND. STATES SOME PAIN IN RT LE, 3, WANT TO BE 1. MED PER EMAR. H/R REG, NO MURMER NOTED. TACHY AT 120. NO TELE. LUNGS CLEAR, RESP EASY,UNLABORED. ON R.A. BT X4 LAST BM TODAY. VIODS PER BSC, 2 ASST. BED IN LOW POSITION, CALL LITE IN REACH, BED ALARM ON FOR SAFETY
--- NOTE | 2018-11-16 08:52 | NUR ---
SHIFT SUMMARY PT A&O TO SELF; DISORIENTED CONVERSATION AT TIMES DURING SHIFT. PT MOOD ANXIOUS AT TIMES. POD#2 ORIF RLE; RLE ELEVATED. EXT PWD; WIGGLES TOES. PAIN MANGED PER EMAR. 2 MAX ASSIST WHEN OOB; DOES NOT FOLLOW DIRECTIONS WELL WHEN OOB; NWB RLE. PT MADE SLIGHT SELF-REPOSITIONS T/O SHIFT. CALL LIGHT IN REACH. BED ALARM ON; SIDE RAILS X3. REPORT GIVEN TO DAY SHIFT RN.
--- NOTE | 2018-11-16 10:00 | NUR ---
SPOKE TO DR NANO KILPATRICK BP. OKAY LEAVE HIGH WE CHECKING FOR POSS ISSUES. CT ORDERED HOR HEAD THIS AM.
[2018-11-16] MEDS ORDERED: BUSP15 PO (16:36)
[2018-11-16] MEDS ORDERED: PROM25 PO (16:36)
--- NOTE | 2018-11-16 17:54 | NUR ---
SPOKE TO TODAY. GOT UPDATED MED LIST. CALLED DR MCGILL TO UPDATE. PT REMAINS MOSTLY FLAT EFFECT WITHDRAWN AND PARANOID. HUSB HAD CALMING EFFECT ON HER. SHE DID HAVE SOME BLADDER RETENTION, DID FINALLY URINATE. PAIN MANAGED WITH TYLENOL AND ONE OXY TODAY. DID GET TO BSC X2 TODAY. BED IN LOW POSITION, CALL LITE IN REACH,, BED ALARM ON FOR SAFETY
--- NOTE | 2018-11-16 20:57 | NUR ---
OFFERED TO DO PM CARE OR GIVE ITEMS FOR PM CARE. PATIENT REFUSED AND REQUEST TO SLEEP
--- NOTE | 2018-11-17 07:27 | NUR ---
SHIFT SUMMARY: PT POD 3 R TIB/FIB FX. NON WT BEARING TO R LEG. BRISK CAP REFIL AND ABLE TO WIGGLE TOES. EXT ELEVATED. 2 SBA ASSIST WITH GAIT BELT AND [place] [facility] IN CHAIR ONCE THIS SHIFT. SOME CONFUSION; APPEARS TO BE PARANOID AND ANXIOUS AT TIMES. REFUSES MEDS AT FIRST- WILL ACCEPT AFTER EDUCATION AND REINFORCEMENT. SLOW TO RESPOND. FLAT AFFECT. TACHY THROUGHOUT SHIFT RANGING IN 120'S-130'S. NOTIFIED. BED ALARM ON. CALL LIGHT IN REACH.
[2018-11-17] MEDS ORDERED: ALBU90OI6 INH (11:20)
[2018-11-17] MEDS ORDERED: AMLO5 PO (11:20)
[2018-11-17] MEDS ORDERED: XARELTO10 MG PO (11:21)
[2018-11-17] MEDS ORDERED: GAVILAX17 GM PO (11:22)
[2018-11-17] MEDS ORDERED: ACET325 PO (11:24)
[2018-11-17] MEDS ORDERED: DULERA 100 MCG/13 GM INH (11:25)
--- NOTE | 2018-11-17 11:58 | NUR ---
MED REC OXYCODONE IR 5MG PO Q8 HOURS PRN ADDED TO THE MED REC. HARD SCRIPT GIVEN TO THE PATIENT.
[2018-11-17] MEDS ORDERED: OXYC5 PO (12:39)
[2018-11-17] MEDS ORDERED: METO50ER PO (12:49)
--- NOTE | 2018-11-17 14:46 | NUR ---
DISCHARGE SPOUSE HAS ALL SUPPLIES/EQUIPTMENT NEEDED AT HOME. PAIN CONTROLLED. CLEARED THERAPY. SCRIPT GIVEN AND CALLED INTO [facility]. WHEELCHAIR ASSIST OUT TO CAR.
== END 2018-11-17 14:49 | disposition home health service (06) ==
LOC: ER 02:48 → SURS 02:49 → ER 04:02 → SURS 04:02 → ER 04:42 → SURS 04:42
PROVIDERS: Emergency Medicine; Orthopaedic Surgery; ADMIT Hospitalist
PROC: 0QSG04Z Reposition Right Tibia with Internal Fixation Device, Open Approach (ICD-10-PCS; principal; 2018-11-14 09:45)
DX: S52.501A Unspecified fracture of the lower end of right radius, initial encounter for closed fracture (principal); S52.601A Unspecified fracture of lower end of right ulna, initial encounter for closed fracture; I10 Essential (primary) hypertension; G40.909 Epilepsy, unspecified, not intractable, without status epilepticus; E03.9 Hypothyroidism, unspecified; J44.9 Chronic obstructive pulmonary disease, unspecified; F41.9 Anxiety disorder, unspecified; G89.4 Chronic pain syndrome; F17.210 Nicotine dependence, cigarettes, uncomplicated; Z88.2 Allergy status to sulfonamides; Z88.5 Allergy status to narcotic agent; Z88.0 Allergy status to penicillin; Z79.899 Other long term (current) drug therapy
CPT/HCPCS: 29505; 36415; 51701; 70450; 71045; 73560-RT; 73590; 73600; 80048; 80053; 85025; 85610; 93005; 93010; 94640; 94760; 96374; 96375; 97110; 97116; 97162; 97166; 97530; 99285-25; C1713; G0378; G8978; G8979; G8987; G8988; J1100; J2370; J2405; J3010; J7120

== ENCOUNTER → 2018-12-01 | Outpatient (CLI) | payer MEDICARE, OTHER ==
[~2018-12-01] MED LIST changes: +ACET325 PO; +AMLO5 PO; +DULERA 100 MCG/13 GM INH; +GAVILAX17 GM PO; +Gas-X125 M1 PO; +PREG300 PO; +XARELTO10 MG PO
[2018-12-01 12:07] LABS: Source, Urine Clean Catch
[2018-12-01 12:12] LABS: Bilirubin, Urine Neg (Neg); Blood, Urine 4+ (Neg); Glucose Qualitative, Urine Neg (Neg); Ketones, Urine Neg (Neg); Leukocyte Esterase, Urine 3+ (Neg); Nitrite, Urine Pos (Neg); Protein, Urine 3+ (Neg); Specific Gravity, Urine 1.015 (1.003-1.022); Urobilinogen, Urine NORM (Normal)
[2018-12-01 13:04] LABS: Appearance, Urine Cloudy (Clear); Color, Urine Yellow (P-Yellow)
[2018-12-01 13:15] LABS: White Blood Cells, Urine TNTC /hpf (0-5)
[2018-12-01 13:16] LABS: Bacteria Many /hpf; Squamous Epithelial Cells Few /hpf (Few)
== END | disposition home or self-care (01) ==
LOC: LAB HH 12:04
PROVIDERS: Internal Medicine
DX: N39.0 Urinary tract infection, site not specified (principal); B96.20 Unspecified Escherichia coli [E. coli] as the cause of diseases classified elsewhere
CPT/HCPCS: 81001; 87077; 87086; 87186

== ENCOUNTER → 2018-12-10 | Outpatient (CLI) | payer MEDICARE, OTHER ==
[2018-12-10 12:46] LABS: Bilirubin, Urine Neg (Neg); Blood, Urine Neg (Neg); Glucose Qualitative, Urine Neg (Neg); Ketones, Urine Neg (Neg); Leukocyte Esterase, Urine 1+ (Neg); Nitrite, Urine Neg (Neg); Protein, Urine Neg (Neg); Specific Gravity, Urine 1.005 (1.003-1.022); Urobilinogen, Urine NORM (Normal); pH, Urine 6.5 (5.0-8.0)
[2018-12-10 13:09] LABS: Appearance, Urine Clear (Clear); Color, Urine Yellow (P-Yellow)
[2018-12-10 13:11] LABS: Red Blood Cells, Urine 0-2 /hpf (0-2); Squamous Epithelial Cells Few /hpf (Few)
[2018-12-10 13:12] LABS: Bacteria Rare /hpf
== END | disposition home or self-care (01) ==
LOC: LAB 10:25 → LAB SHORT 10:25
PROVIDERS: Internal Medicine
DX: N39.0 Urinary tract infection, site not specified (principal)
CPT/HCPCS: 81001; 87086

== ENCOUNTER 2019-03-08 07:11 | Day surgery (SDC) | payer OTHER ==
[~2019-03-08] VITALS: Ht 157.5 cm; Wt 63.6 kg
[~2019-03-08 07:11] MED LIST changes: +ANORO ELLIPTA1 EACH INH; +B-1100 MG PO; +CALCIUM CITRAT1 EAC6 PO; +IBUP800; +Nicoderm Cq1 EAC1 TOP; +Nitrostat0.4 MG SL; +Robaxin750 MG PO; +Synthroid25 MCG PO
[2019-03-08] MEDS ORDERED: LORA1 (07:47)
[2019-03-08] MEDS ORDERED: PROM25 (07:47)
[2019-03-08] MEDS ORDERED: ONDA8 (07:48)
--- NOTE | 2019-03-08 08:14 | NUR ---
03/08/19 0814 Melanie Salas PROCEDURE ABORTED D/T FOOD IN THE STOMACH.
== END 2019-03-08 08:42 | disposition home or self-care (01) ==
LOC: ORSCSDS 07:11
PROVIDERS: Internal Medicine Gastroenterology
PROC: 0DJ08ZZ Inspection of Upper Intestinal Tract, Via Natural or Artificial Opening Endoscopic (ICD-10-PCS; principal; 2019-03-08 08:00)
DX: R19.7 Diarrhea, unspecified (principal); K21.9 Gastro-esophageal reflux disease without esophagitis; R10.9 Unspecified abdominal pain; E03.9 Hypothyroidism, unspecified; I10 Essential (primary) hypertension; J45.909 Unspecified asthma, uncomplicated; B19.20 Unspecified viral hepatitis C without hepatic coma; J44.9 Chronic obstructive pulmonary disease, unspecified; F41.8 Other specified anxiety disorders; F43.10 Post-traumatic stress disorder, unspecified; F17.210 Nicotine dependence, cigarettes, uncomplicated; Z79.899 Other long term (current) drug therapy
CPT/HCPCS: J0330; J0461; J1980; J2405; J2704; J7120

== ENCOUNTER 2019-04-06 08:03 | Day surgery (SDC) | payer OTHER ==
[~2019-04-06 08:03] MED LIST changes: +ONDA8 PO
[2019-04-06] MEDS ORDERED: ONDA4ODT MM (16:46)
[2019-04-06] MEDS ORDERED: VANCO 1.251.25 GM/25 IV (16:52)
== END 2019-04-06 17:50 | disposition home or self-care (01) ==
LOC: ATC 08:03
DX: M86.9 Osteomyelitis, unspecified (principal); T84.622A Infection and inflammatory reaction due to internal fixation device of right tibia, initial encounter; S82.201K Unspecified fracture of shaft of right tibia, subsequent encounter for closed fracture with nonunion; J44.9 Chronic obstructive pulmonary disease, unspecified; F17.210 Nicotine dependence, cigarettes, uncomplicated; I10 Essential (primary) hypertension; Z88.0 Allergy status to penicillin; Z79.899 Other long term (current) drug therapy; Z88.5 Allergy status to narcotic agent; Z88.6 Allergy status to analgesic agent
CPT/HCPCS: J3370

== ENCOUNTER 2019-04-07 00:14 | Day surgery (SDC) | payer OTHER ==
[~2019-04-07] VITALS: Ht 157.5 cm; Wt 61.4 kg
[~2019-04-07 00:14] MED LIST changes: +ONDA4ODT MM; +VANCO 1.251.25 GM/25 IV
[2019-04-07 08:30] LABS: Vancomycin, Trough 22.5 ug/mL (5.0-10.0)
--- NOTE | 2019-04-07 08:56 | NUR ---
RESULTS FROM [facility], PER PAMELA TO SKIP AM DOSE AND PT TO RETURN THIS AFTERNOON FOR NEXT DOSE. [employer] CALLED AND WILL BE ABLE TO PROVIDE RIDE @ THIS TIME.
[2019-04-07 15:02] LABS: BASOPHILS ABSOLUTE AUTO 0.07 K/mm3 (0.00-0.23); BASOPHILS PERCENT AUTO 1 % (0-2); EOSINOPHILS ABSOLUTE AUTO 0.44 K/mm3 (0.00-0.68); EOSINOPHILS PERCENT AUTO 5 % (0-6); Hematocrit 31.8 % (33.0-51.0); Hemoglobin 10.3 g/dL (11.5-16.0); IMMATURE GRAN ABSOLUTE AUTO 0.03 K/mm3 (0.00-0.10); IMMATURE GRAN PERCENT AUTO 0 % (0-1); LYMPHOCYTES ABSOLUTE AUTO 3.15 K/mm3 (0.84-5.20); LYMPHOCYTES PERCENT AUTO 33 % (21-46); MONOCYTES ABSOLUTE AUTO 1.11 K/mm3 (0.16-1.47); MONOCYTES PERCENT AUTO 12 % (4-13); Mean Corpuscular HGB 26.6 pg (26.0-34.0); Mean Corpuscular HGB Conc 32.4 g/dL (31.5-36.5); Mean Corpuscular Volume 82 fL (80-100); Mean Platelet Volume 12.4 fL (9.1-12.4); NEUTROPHILS ABSOLUTE AUTO 4.78 K/mm3 (1.96-9.15); NEUTROPHILS PERCENT AUTO 50 % (41-73); Platelet Count 187 K/mm3 (150-400); RDW Coefficient Variation 18.7 % (11.7-14.2); RDW Standard Deviation 55.1 fL (35.1-46.3); Red Blood Cell Count 3.87 M/mm3 (3.80-5.20); White Blood Cell Count 9.58 K/mm3 (4.00-11.30)
[2019-04-07 15:28] LABS: Alanine Aminotransfer (ALT/SGP 15 U/L (12-78); Albumin, Blood 2.9 g/dL (3.4-5.0); Albumin/Globulin Ratio 0.6 (0.8-1.8); Alk Phos 127 U/L (50-136); Anion Gap 6 mmol/L (6-16); Aspartate Aminotrans (AST/SGOT 14 U/L (12-37); Bilirubin, Total 0.5 mg/dL (0.1-1.0); Blood Urea Nitrogen 8 mg/dL (8-24); Bun/Creatinine Ratio 10.3 (12.0-20.0); CO2, Blood 27 mmol/L (21-32); Calcium, Blood 8.5 mg/dL (8.5-10.1); Chloride, Blood 104 mmol/L (98-108); Creatinine, Blood 0.77 mg/dL (0.40-1.00); Globulin, Blood 5.1 g/dL (2.2-4.0); Glomerular Filtration Rate >60 (60-); Glucose, Blood 85 mg/dL (70-99); Potassium, Blood 3.9 mmol/L (3.5-5.5); Sodium, Blood 137 mmol/L (136-145); Vancomycin, Random 16.2 ug/mL
== END 2019-04-07 17:42 | disposition home or self-care (01) ==
LOC: ATC 00:14
PROVIDERS: Internal Medicine; Internal Medicine Infectious Disease
DX: M86.9 Osteomyelitis, unspecified (principal)
CPT/HCPCS: 36592; 80053; 80202; 82565; 85025; 85651; 86140; 96365; J3370

== ENCOUNTER 2019-04-11 16:05 | Day surgery (SDC) | payer OTHER | END 2019-04-11 22:49 | disposition home or self-care (01) | LOC: ATC 16:05 | DX: M86.9 Osteomyelitis, unspecified (principal); I10 Essential (primary) hypertension; J44.9 Chronic obstructive pulmonary disease, unspecified; D64.9 Anemia, unspecified; E03.9 Hypothyroidism, unspecified; F32.9 Major depressive disorder, single episode, unspecified; F41.9 Anxiety disorder, unspecified; F17.210 Nicotine dependence, cigarettes, uncomplicated; Z79.899 Other long term (current) drug therapy; Z88.0 Allergy status to penicillin; Z88.5 Allergy status to narcotic agent | CPT/HCPCS: J3370 ==

== ENCOUNTER 2019-04-13 00:40 | Day surgery (SDC) | payer OTHER ==
[2019-04-13 16:53] LABS: Creatinine, Blood 0.76 mg/dL (0.40-1.00); Vancomycin, Trough 11.1 ug/mL (5.0-10.0)
== END 2019-04-13 18:16 | disposition home or self-care (01) ==
LOC: ATC 00:40
PROVIDERS: Internal Medicine Infectious Disease
DX: M86.9 Osteomyelitis, unspecified (principal); F17.210 Nicotine dependence, cigarettes, uncomplicated; Z79.899 Other long term (current) drug therapy; Z88.5 Allergy status to narcotic agent; Z88.6 Allergy status to analgesic agent; Z88.0 Allergy status to penicillin
CPT/HCPCS: 80202; 82565; 96365; J3370

== ENCOUNTER 2019-04-15 00:02 | Day surgery (SDC) | payer OTHER | END 2019-04-15 18:46 | disposition home or self-care (01) | LOC: ATC 00:02 | DX: M86.9 Osteomyelitis, unspecified (principal); T84.622A Infection and inflammatory reaction due to internal fixation device of right tibia, initial encounter; S82.251K Displaced comminuted fracture of shaft of right tibia, subsequent encounter for closed fracture with nonunion; J44.9 Chronic obstructive pulmonary disease, unspecified; I10 Essential (primary) hypertension; F17.210 Nicotine dependence, cigarettes, uncomplicated; Z88.0 Allergy status to penicillin; Z88.5 Allergy status to narcotic agent; Z88.6 Allergy status to analgesic agent; Z79.899 Other long term (current) drug therapy | CPT/HCPCS: 96365; 96366; J3370; J7050 ==

== ENCOUNTER 2019-04-16 14:48 | Day surgery (SDC) | payer OTHER ==
[2019-04-16 15:34] LABS: Creatinine, Blood 0.75 mg/dL (0.40-1.00); Vancomycin, Trough 14.4 ug/mL (5.0-10.0)
== END 2019-04-16 17:51 | disposition home or self-care (01) ==
LOC: ATC 14:48
PROVIDERS: Internal Medicine
DX: M86.9 Osteomyelitis, unspecified (principal); T84.622A Infection and inflammatory reaction due to internal fixation device of right tibia, initial encounter; S82.251K Displaced comminuted fracture of shaft of right tibia, subsequent encounter for closed fracture with nonunion
CPT/HCPCS: 80202; 82565; 96365; 96366; J3370; J7050

== ENCOUNTER 2019-04-17 14:52 | Day surgery (SDC) | payer OTHER | END 2019-04-17 16:50 | disposition home or self-care (01) | LOC: ATC 14:52 | DX: M86.9 Osteomyelitis, unspecified (principal); I10 Essential (primary) hypertension; J44.9 Chronic obstructive pulmonary disease, unspecified; E03.9 Hypothyroidism, unspecified; F32.9 Major depressive disorder, single episode, unspecified; F17.210 Nicotine dependence, cigarettes, uncomplicated; Z79.899 Other long term (current) drug therapy; Z88.5 Allergy status to narcotic agent; Z88.6 Allergy status to analgesic agent; Z88.0 Allergy status to penicillin | CPT/HCPCS: 96365; 96366; J3370; J7050 ==

== ENCOUNTER 2019-04-23 13:05 | Day surgery (SDC) | payer OTHER ==
[2019-04-23 13:45] LABS: BASOPHILS ABSOLUTE AUTO 0.06 K/mm3 (0.00-0.23); BASOPHILS PERCENT AUTO 1 % (0-2); EOSINOPHILS ABSOLUTE AUTO 0.48 K/mm3 (0.00-0.68); EOSINOPHILS PERCENT AUTO 6 % (0-6); Hemoglobin 10.9 g/dL (11.5-16.0); IMMATURE GRAN ABSOLUTE AUTO 0.02 K/mm3 (0.00-0.10); IMMATURE GRAN PERCENT AUTO 0 % (0-1); LYMPHOCYTES ABSOLUTE AUTO 2.34 K/mm3 (0.84-5.20); LYMPHOCYTES PERCENT AUTO 29 % (21-46); MONOCYTES ABSOLUTE AUTO 0.59 K/mm3 (0.16-1.47); MONOCYTES PERCENT AUTO 7 % (4-13); Mean Corpuscular HGB 26.8 pg (26.0-34.0); Mean Corpuscular HGB Conc 32.1 g/dL (31.5-36.5); Mean Corpuscular Volume 84 fL (80-100); Mean Platelet Volume 12.6 fL (9.1-12.4); NEUTROPHILS ABSOLUTE AUTO 4.48 K/mm3 (1.96-9.15); NEUTROPHILS PERCENT AUTO 56 % (41-73); Platelet Count 187 K/mm3 (150-400); RDW Coefficient Variation 17.9 % (11.7-14.2); RDW Standard Deviation 55.2 fL (35.1-46.3); Red Blood Cell Count 4.06 M/mm3 (3.80-5.20); White Blood Cell Count 7.97 K/mm3 (4.00-11.30)
[2019-04-23 14:10] LABS: Alanine Aminotransfer (ALT/SGP 16 U/L (12-78); Albumin, Blood 2.9 g/dL (3.4-5.0); Albumin/Globulin Ratio 0.6 (0.8-1.8); Alk Phos 150 U/L (50-136); Anion Gap 6 mmol/L (6-16); Aspartate Aminotrans (AST/SGOT 19 U/L (12-37); Bilirubin, Total 0.4 mg/dL (0.1-1.0); Blood Urea Nitrogen 8 mg/dL (8-24); Bun/Creatinine Ratio 9.9 (12.0-20.0); CO2, Blood 28 mmol/L (21-32); Calcium, Blood 8.6 mg/dL (8.5-10.1); Chloride, Blood 103 mmol/L (98-108); Creatinine, Blood 0.81 mg/dL (0.40-1.00); Globulin, Blood 5.1 g/dL (2.2-4.0); Glomerular Filtration Rate >60 (60-); Glucose, Blood 94 mg/dL (70-99); Potassium, Blood 4.2 mmol/L (3.5-5.5); Sodium, Blood 137 mmol/L (136-145)
== END 2019-04-23 15:18 | disposition home or self-care (01) ==
LOC: ATC 13:05
PROVIDERS: Internal Medicine Infectious Disease
DX: M86.9 Osteomyelitis, unspecified (principal); I10 Essential (primary) hypertension; J44.9 Chronic obstructive pulmonary disease, unspecified; E03.9 Hypothyroidism, unspecified; F32.9 Major depressive disorder, single episode, unspecified; F17.210 Nicotine dependence, cigarettes, uncomplicated; Z88.5 Allergy status to narcotic agent; Z88.6 Allergy status to analgesic agent; Z88.0 Allergy status to penicillin; Z88.8 Allergy status to other drugs, medicaments and biological substances; Z79.899 Other long term (current) drug therapy
CPT/HCPCS: 80053; 85025; 85651

== ENCOUNTER 2019-04-24 13:16 | Day surgery (SDC) | payer OTHER | END 2019-04-24 15:31 | disposition home or self-care (01) | LOC: ATC 13:16 | DX: M86.9 Osteomyelitis, unspecified (principal); S82.251K Displaced comminuted fracture of shaft of right tibia, subsequent encounter for closed fracture with nonunion; T84.7XXA Infection and inflammatory reaction due to other internal orthopedic prosthetic devices, implants and grafts, initial encounter | CPT/HCPCS: J3370; J7050 ==

== ENCOUNTER 2019-04-25 00:12 | Day surgery (SDC) | payer OTHER ==
[2019-04-25 14:51] LABS: Creatinine, Blood 0.72 mg/dL (0.40-1.00); Vancomycin, Trough 14.8 ug/mL (5.0-10.0)
== END 2019-04-25 16:51 | disposition home or self-care (01) ==
LOC: ATC 00:12
PROVIDERS: Internal Medicine
DX: M86.9 Osteomyelitis, unspecified (principal); I10 Essential (primary) hypertension; J44.9 Chronic obstructive pulmonary disease, unspecified; E03.9 Hypothyroidism, unspecified; F32.9 Major depressive disorder, single episode, unspecified; F17.210 Nicotine dependence, cigarettes, uncomplicated; Z79.899 Other long term (current) drug therapy; Z88.8 Allergy status to other drugs, medicaments and biological substances; Z88.5 Allergy status to narcotic agent; Z88.6 Allergy status to analgesic agent; Z88.0 Allergy status to penicillin
CPT/HCPCS: 80202; 82565; 96365; 96366; J3370; J7050

== ENCOUNTER 2019-04-28 13:32 | Day surgery (SDC) | payer OTHER | END 2019-04-28 16:02 | disposition home or self-care (01) | LOC: ATC 13:32 | DX: M86.9 Osteomyelitis, unspecified (principal); I10 Essential (primary) hypertension; J44.9 Chronic obstructive pulmonary disease, unspecified; E03.9 Hypothyroidism, unspecified; F17.210 Nicotine dependence, cigarettes, uncomplicated; Z88.6 Allergy status to analgesic agent; Z88.0 Allergy status to penicillin | CPT/HCPCS: 96365; 96366; J3370; J7050 ==

== ENCOUNTER 2019-04-29 02:13 | Day surgery (SDC) | payer OTHER ==
[~2019-04-29] VITALS: Ht 157.5 cm; Wt 61.7 kg
== END 2019-04-29 16:43 | disposition home or self-care (01) ==
LOC: ATC 02:13
DX: M86.9 Osteomyelitis, unspecified (principal); J44.9 Chronic obstructive pulmonary disease, unspecified; I10 Essential (primary) hypertension; E03.9 Hypothyroidism, unspecified; Z79.899 Other long term (current) drug therapy; F17.210 Nicotine dependence, cigarettes, uncomplicated
CPT/HCPCS: 96365; 96366; J3370; J7050

== ENCOUNTER 2019-04-30 13:57 | Day surgery (SDC) | payer OTHER ==
--- NOTE | 2019-04-30 16:29 | NUR ---
LAB DRAWN AT END OF INFUSION. 7CC DISCARDED AND 7CC FOR LABS.
[2019-04-30 16:32] LABS: BASOPHILS ABSOLUTE AUTO 0.05 K/mm3 (0.00-0.23); BASOPHILS PERCENT AUTO 1 % (0-2); EOSINOPHILS ABSOLUTE AUTO 0.42 K/mm3 (0.00-0.68); EOSINOPHILS PERCENT AUTO 6 % (0-6); Hematocrit 32.7 % (33.0-51.0); Hemoglobin 10.3 g/dL (11.5-16.0); IMMATURE GRAN ABSOLUTE AUTO 0.02 K/mm3 (0.00-0.10); IMMATURE GRAN PERCENT AUTO 0 % (0-1); LYMPHOCYTES ABSOLUTE AUTO 2.44 K/mm3 (0.84-5.20); LYMPHOCYTES PERCENT AUTO 33 % (21-46); MONOCYTES ABSOLUTE AUTO 0.58 K/mm3 (0.16-1.47); MONOCYTES PERCENT AUTO 8 % (4-13); Mean Corpuscular HGB 26.5 pg (26.0-34.0); Mean Corpuscular HGB Conc 31.5 g/dL (31.5-36.5); Mean Corpuscular Volume 84 fL (80-100); Mean Platelet Volume 12.4 fL (9.1-12.4); NEUTROPHILS ABSOLUTE AUTO 3.85 K/mm3 (1.96-9.15); NEUTROPHILS PERCENT AUTO 52 % (41-73); Platelet Count 155 K/mm3 (150-400); RDW Coefficient Variation 17.6 % (11.7-14.2); RDW Standard Deviation 54.4 fL (35.1-46.3); Red Blood Cell Count 3.88 M/mm3 (3.80-5.20); White Blood Cell Count 7.36 K/mm3 (4.00-11.30)
[2019-04-30 16:54] LABS: Alanine Aminotransfer (ALT/SGP 17 U/L (12-78); Albumin, Blood 2.9 g/dL (3.4-5.0); Albumin/Globulin Ratio 0.6 (0.8-1.8); Alk Phos 148 U/L (50-136); Anion Gap 6 mmol/L (6-16); Aspartate Aminotrans (AST/SGOT 22 U/L (12-37); Bilirubin, Total 0.4 mg/dL (0.1-1.0); Blood Urea Nitrogen 7 mg/dL (8-24); Bun/Creatinine Ratio 8.5 (12.0-20.0); CO2, Blood 27 mmol/L (21-32); Calcium, Blood 8.3 mg/dL (8.5-10.1); Chloride, Blood 105 mmol/L (98-108); Creatinine, Blood 0.83 mg/dL (0.40-1.00); Globulin, Blood 4.8 g/dL (2.2-4.0); Glomerular Filtration Rate >60 (60-); Glucose, Blood 94 mg/dL (70-99); Potassium, Blood 3.9 mmol/L (3.5-5.5); Sodium, Blood 138 mmol/L (136-145); Total Protein, Blood 7.7 g/dL (6.4-8.2)
== END 2019-04-30 16:10 | disposition home or self-care (01) ==
LOC: ATC 13:57
PROVIDERS: Internal Medicine Infectious Disease
DX: M86.9 Osteomyelitis, unspecified (principal); I10 Essential (primary) hypertension; J44.9 Chronic obstructive pulmonary disease, unspecified; E03.9 Hypothyroidism, unspecified; F32.9 Major depressive disorder, single episode, unspecified; F17.210 Nicotine dependence, cigarettes, uncomplicated; Z79.899 Other long term (current) drug therapy
CPT/HCPCS: 80053; 85025; 85651; 96365; 96366; J3370; J7050

== ENCOUNTER 2019-05-01 13:41 | Day surgery (SDC) | payer OTHER ==
[2019-05-01 14:39] LABS: Creatinine, Blood 0.79 mg/dL (0.40-1.00); Vancomycin, Trough 17.6 ug/mL (5.0-10.0)
== END 2019-05-01 16:39 | disposition home or self-care (01) ==
LOC: ATC 13:41
PROVIDERS: Internal Medicine Infectious Disease
DX: M86.9 Osteomyelitis, unspecified (principal); I10 Essential (primary) hypertension; J44.9 Chronic obstructive pulmonary disease, unspecified; E03.9 Hypothyroidism, unspecified; F17.210 Nicotine dependence, cigarettes, uncomplicated
CPT/HCPCS: 80202; 82565; 96365; 96366; J3370; J7050

== ENCOUNTER 2019-05-02 00:13 | Day surgery (SDC) | payer OTHER | END 2019-05-02 16:00 | disposition home or self-care (01) | LOC: ATC 00:13 | DX: M86.9 Osteomyelitis, unspecified (principal); I10 Essential (primary) hypertension; J44.9 Chronic obstructive pulmonary disease, unspecified; E03.9 Hypothyroidism, unspecified; Z88.0 Allergy status to penicillin; F17.210 Nicotine dependence, cigarettes, uncomplicated; Z88.5 Allergy status to narcotic agent; Z88.6 Allergy status to analgesic agent | CPT/HCPCS: 96365; 96366; J3370; J7050 ==

== ENCOUNTER 2019-05-03 00:29 | Day surgery (SDC) | payer OTHER | END 2019-05-03 16:52 | disposition home or self-care (01) | LOC: ATC 00:29 | DX: M86.9 Osteomyelitis, unspecified (principal); I10 Essential (primary) hypertension; J44.9 Chronic obstructive pulmonary disease, unspecified; E03.9 Hypothyroidism, unspecified; F17.210 Nicotine dependence, cigarettes, uncomplicated; Z88.0 Allergy status to penicillin; Z88.5 Allergy status to narcotic agent; Z88.6 Allergy status to analgesic agent | CPT/HCPCS: 96365; 96366; J3370; J7050 ==

== ENCOUNTER 2019-05-04 00:02 | Day surgery (SDC) | payer OTHER ==
[2019-05-04 14:23] LABS: BASOPHILS ABSOLUTE AUTO 0.07 K/mm3 (0.00-0.23); BASOPHILS PERCENT AUTO 1 % (0-2); EOSINOPHILS ABSOLUTE AUTO 0.46 K/mm3 (0.00-0.68); EOSINOPHILS PERCENT AUTO 7 % (0-6); Hematocrit 37.7 % (33.0-51.0); IMMATURE GRAN ABSOLUTE AUTO 0.01 K/mm3 (0.00-0.10); IMMATURE GRAN PERCENT AUTO 0 % (0-1); LYMPHOCYTES ABSOLUTE AUTO 3.03 K/mm3 (0.84-5.20); LYMPHOCYTES PERCENT AUTO 43 % (21-46); MONOCYTES ABSOLUTE AUTO 0.73 K/mm3 (0.16-1.47); MONOCYTES PERCENT AUTO 10 % (4-13); Mean Corpuscular HGB 26.5 pg (26.0-34.0); Mean Corpuscular HGB Conc 31.8 g/dL (31.5-36.5); Mean Corpuscular Volume 83 fL (80-100); Mean Platelet Volume 12.2 fL (9.1-12.4); NEUTROPHILS ABSOLUTE AUTO 2.69 K/mm3 (1.96-9.15); NEUTROPHILS PERCENT AUTO 39 % (41-73); Platelet Count 169 K/mm3 (150-400); RDW Coefficient Variation 17.4 % (11.7-14.2); RDW Standard Deviation 53.4 fL (35.1-46.3); Red Blood Cell Count 4.52 M/mm3 (3.80-5.20); White Blood Cell Count 6.99 K/mm3 (4.00-11.30)
[2019-05-04 14:59] LABS: Alanine Aminotransfer (ALT/SGP 17 U/L (12-78); Albumin, Blood 3.1 g/dL (3.4-5.0); Albumin/Globulin Ratio 0.6 (0.8-1.8); Alk Phos 155 U/L (50-136); Anion Gap 4 mmol/L (6-16); Aspartate Aminotrans (AST/SGOT 24 U/L (12-37); Bilirubin, Total 0.4 mg/dL (0.1-1.0); Blood Urea Nitrogen 6 mg/dL (8-24); Bun/Creatinine Ratio 8.3 (12.0-20.0); CO2, Blood 28 mmol/L (21-32); Chloride, Blood 108 mmol/L (98-108); Creatinine, Blood 0.72 mg/dL (0.40-1.00); Globulin, Blood 5.2 g/dL (2.2-4.0); Glomerular Filtration Rate >60 (60-); Glucose, Blood 86 mg/dL (70-99); Potassium, Blood 4.1 mmol/L (3.5-5.5); Prealbumin, Blood 13.9 mg/dL (20.0-40.0); Sodium, Blood 140 mmol/L (136-145); Total Protein, Blood 8.3 g/dL (6.4-8.2)
== END 2019-05-04 16:59 | disposition home or self-care (01) ==
LOC: ATC 00:02
PROVIDERS: Internal Medicine; Physician Assistant
DX: M86.9 Osteomyelitis, unspecified (principal); R56.9 Unspecified convulsions; Z88.0 Allergy status to penicillin; Z88.5 Allergy status to narcotic agent; Z88.8 Allergy status to other drugs, medicaments and biological substances
CPT/HCPCS: 80053; 80202; 84134; 85025; 96365; 96366; J3370; J7050

== ENCOUNTER 2019-05-05 00:23 | Day surgery (SDC) | payer OTHER | END 2019-05-05 10:49 | disposition home or self-care (01) | LOC: ATC 00:23 | DX: M86.9 Osteomyelitis, unspecified (principal); I10 Essential (primary) hypertension; J44.9 Chronic obstructive pulmonary disease, unspecified; E03.9 Hypothyroidism, unspecified; F32.9 Major depressive disorder, single episode, unspecified; F17.210 Nicotine dependence, cigarettes, uncomplicated; Z79.899 Other long term (current) drug therapy; Z88.5 Allergy status to narcotic agent; Z88.6 Allergy status to analgesic agent; Z88.0 Allergy status to penicillin | CPT/HCPCS: 96365; 96366 ==

== ENCOUNTER 2019-05-07 13:34 | Day surgery (SDC) | payer OTHER ==
[2019-05-07 14:03] LABS: BASOPHILS ABSOLUTE AUTO 0.06 K/mm3 (0.00-0.23); BASOPHILS PERCENT AUTO 1 % (0-2); EOSINOPHILS ABSOLUTE AUTO 0.44 K/mm3 (0.00-0.68); EOSINOPHILS PERCENT AUTO 6 % (0-6); Hematocrit 35.2 % (33.0-51.0); Hemoglobin 11.1 g/dL (11.5-16.0); IMMATURE GRAN ABSOLUTE AUTO 0.02 K/mm3 (0.00-0.10); IMMATURE GRAN PERCENT AUTO 0 % (0-1); LYMPHOCYTES ABSOLUTE AUTO 2.74 K/mm3 (0.84-5.20); LYMPHOCYTES PERCENT AUTO 39 % (21-46); MONOCYTES PERCENT AUTO 9 % (4-13); Mean Corpuscular HGB 26.7 pg (26.0-34.0); Mean Corpuscular HGB Conc 31.5 g/dL (31.5-36.5); Mean Corpuscular Volume 85 fL (80-100); Mean Platelet Volume 12.7 fL (9.1-12.4); NEUTROPHILS ABSOLUTE AUTO 3.23 K/mm3 (1.96-9.15); NEUTROPHILS PERCENT AUTO 46 % (41-73); Platelet Count 154 K/mm3 (150-400); RDW Coefficient Variation 17.2 % (11.7-14.2); RDW Standard Deviation 53.4 fL (35.1-46.3); Red Blood Cell Count 4.16 M/mm3 (3.80-5.20); White Blood Cell Count 7.09 K/mm3 (4.00-11.30)
[2019-05-07 14:14] LABS: Alanine Aminotransfer (ALT/SGP 16 U/L (12-78); Albumin/Globulin Ratio 0.6 (0.8-1.8); Alk Phos 155 U/L (50-136); Anion Gap 3 mmol/L (6-16); Aspartate Aminotrans (AST/SGOT 15 U/L (12-37); Bilirubin, Total 0.3 mg/dL (0.1-1.0); Blood Urea Nitrogen 13 mg/dL (8-24); Bun/Creatinine Ratio 15.1 (12.0-20.0); CO2, Blood 31 mmol/L (21-32); Calcium, Blood 8.7 mg/dL (8.5-10.1); Chloride, Blood 104 mmol/L (98-108); Creatinine, Blood 0.86 mg/dL (0.40-1.00); Globulin, Blood 4.8 g/dL (2.2-4.0); Glomerular Filtration Rate >60 (60-); Glucose, Blood 92 mg/dL (70-99); Potassium, Blood 4.3 mmol/L (3.5-5.5); Sodium, Blood 138 mmol/L (136-145); Total Protein, Blood 7.8 g/dL (6.4-8.2); Vancomycin, Trough 8.4 ug/mL (5.0-10.0)
--- NOTE | 2019-05-07 16:11 | NUR ---
PT'S PLANS TO TAKE HER TO THE ER AFTER HER [facility]ICK APPOINTMENT TODAY. HE STATES THE PIN IN THE TOP OF HER FOOT HAS PULLED OUT AND HE WANTS TO HAVE IT EVALUATED.
--- NOTE | 2019-05-07 18:32 | NUR ---
Lab results from blood work drawn today faxed to Dr. Alamo's office.
== END 2019-05-07 16:11 | disposition home or self-care (01) ==
LOC: ATC 13:34
PROVIDERS: Internal Medicine Infectious Disease
DX: M86.9 Osteomyelitis, unspecified (principal); R56.9 Unspecified convulsions; I10 Essential (primary) hypertension; E03.9 Hypothyroidism, unspecified; F32.9 Major depressive disorder, single episode, unspecified; M81.0 Age-related osteoporosis without current pathological fracture; J44.9 Chronic obstructive pulmonary disease, unspecified; F17.210 Nicotine dependence, cigarettes, uncomplicated; Z88.5 Allergy status to narcotic agent; Z88.6 Allergy status to analgesic agent; Z88.8 Allergy status to other drugs, medicaments and biological substances
CPT/HCPCS: 80053; 80202; 85025; 85651; 96365; J3370; J7050

== ENCOUNTER 2019-05-07 16:18 | Emergency (ER) | payer OTHER ==
[~2019-05-07] VITALS: Ht 157.5 cm; Wt 61.2 kg
== END 2019-05-07 16:34 | disposition home or self-care (01) ==
LOC: ER 16:18
DX: S90.812A Abrasion, left foot, initial encounter (principal); I10 Essential (primary) hypertension; J43.9 Emphysema, unspecified; M79.7 Fibromyalgia; F17.210 Nicotine dependence, cigarettes, uncomplicated; Z88.6 Allergy status to analgesic agent; Z88.5 Allergy status to narcotic agent; Z88.0 Allergy status to penicillin; Z88.8 Allergy status to other drugs, medicaments and biological substances; Z79.899 Other long term (current) drug therapy; X58.XXXA Exposure to other specified factors, initial encounter
CPT/HCPCS: 99282

== ENCOUNTER 2019-05-08 13:46 | Day surgery (SDC) | payer OTHER | END 2019-05-08 15:54 | disposition home or self-care (01) | LOC: ATC 13:46 | DX: M86.9 Osteomyelitis, unspecified (principal); J44.9 Chronic obstructive pulmonary disease, unspecified; E03.9 Hypothyroidism, unspecified; F32.9 Major depressive disorder, single episode, unspecified; I10 Essential (primary) hypertension; F17.210 Nicotine dependence, cigarettes, uncomplicated; Z88.0 Allergy status to penicillin; Z88.5 Allergy status to narcotic agent; Z88.8 Allergy status to other drugs, medicaments and biological substances | CPT/HCPCS: 96365; 96366; J3370; J7050 ==

== ENCOUNTER 2019-05-09 00:06 | Day surgery (SDC) | payer OTHER | END 2019-05-09 16:15 | disposition home or self-care (01) | LOC: ATC 00:06 | DX: M86.9 Osteomyelitis, unspecified (principal); I10 Essential (primary) hypertension; J44.9 Chronic obstructive pulmonary disease, unspecified; E03.9 Hypothyroidism, unspecified; F32.9 Major depressive disorder, single episode, unspecified; F17.210 Nicotine dependence, cigarettes, uncomplicated; Z88.0 Allergy status to penicillin; Z88.5 Allergy status to narcotic agent; Z88.6 Allergy status to analgesic agent | CPT/HCPCS: 96365; 96366; J3370; J7050 ==

== ENCOUNTER 2019-05-10 03:05 | Day surgery (SDC) | payer OTHER ==
[2019-05-10 14:31] LABS: Creatinine, Blood 0.81 mg/dL (0.40-1.00); Vancomycin, Trough 18.4 ug/mL (5.0-10.0)
== END 2019-05-10 16:58 | disposition home or self-care (01) ==
LOC: ATC 03:05
PROVIDERS: Internal Medicine Infectious Disease
DX: M86.9 Osteomyelitis, unspecified (principal); I10 Essential (primary) hypertension; J44.9 Chronic obstructive pulmonary disease, unspecified; E03.9 Hypothyroidism, unspecified; F32.9 Major depressive disorder, single episode, unspecified; F17.210 Nicotine dependence, cigarettes, uncomplicated; Z88.5 Allergy status to narcotic agent; Z88.6 Allergy status to analgesic agent; Z88.0 Allergy status to penicillin; Z79.899 Other long term (current) drug therapy
CPT/HCPCS: 80202; 82565; 96365; 96366; J3370; J7050

== ENCOUNTER 2019-05-11 00:27 | Day surgery (SDC) | payer OTHER | END 2019-05-11 15:55 | disposition home or self-care (01) | LOC: ATC 00:27 | DX: M86.9 Osteomyelitis, unspecified (principal); I10 Essential (primary) hypertension; J44.9 Chronic obstructive pulmonary disease, unspecified; E03.9 Hypothyroidism, unspecified; F32.9 Major depressive disorder, single episode, unspecified; F17.210 Nicotine dependence, cigarettes, uncomplicated; Z79.899 Other long term (current) drug therapy | CPT/HCPCS: 96365; 96366; J3370; J7050 ==

== ENCOUNTER 2019-05-13 00:19 | Day surgery (SDC) | payer OTHER | END 2019-05-13 23:12 | disposition home or self-care (01) | LOC: ATC 00:19 | DX: M86.8X7 Other osteomyelitis, ankle and foot (principal); B95.4 Other streptococcus as the cause of diseases classified elsewhere; F17.210 Nicotine dependence, cigarettes, uncomplicated; J43.9 Emphysema, unspecified; Z79.899 Other long term (current) drug therapy ==

== ENCOUNTER 2019-05-15 02:35 | Day surgery (SDC) | payer OTHER ==
--- NOTE | 2019-05-15 15:56 | NUR ---
PT DID NOT SHOW UP FOR HER APPOINTMENT FOR ANTIBIOTICS TODAY OR YESTERDAY.
== END 2019-05-15 22:47 | disposition home or self-care (01) ==
LOC: ATC 02:35
DX: M86.8X6 Other osteomyelitis, lower leg (principal); B95.7 Other staphylococcus as the cause of diseases classified elsewhere; B95.4 Other streptococcus as the cause of diseases classified elsewhere; Z53.8 Procedure and treatment not carried out for other reasons; F17.210 Nicotine dependence, cigarettes, uncomplicated; J43.9 Emphysema, unspecified; S82.301K Unspecified fracture of lower end of right tibia, subsequent encounter for closed fracture with nonunion; X58.XXXD Exposure to other specified factors, subsequent encounter; E03.9 Hypothyroidism, unspecified; M81.0 Age-related osteoporosis without current pathological fracture; Z79.899 Other long term (current) drug therapy; Z88.5 Allergy status to narcotic agent; Z88.6 Allergy status to analgesic agent; Z88.0 Allergy status to penicillin; Z88.8 Allergy status to other drugs, medicaments and biological substances; Z79.1 Long term (current) use of non-steroidal anti-inflammatories (NSAID); Z79.891 Long term (current) use of opiate analgesic
CPT/HCPCS: J3370; J7050

== ENCOUNTER 2019-05-16 00:11 | Day surgery (SDC) | payer OTHER | END 2019-05-16 22:48 | disposition home or self-care (01) | LOC: ATC 00:11 | DX: M86.8X6 Other osteomyelitis, lower leg (principal); B95.4 Other streptococcus as the cause of diseases classified elsewhere; B95.7 Other staphylococcus as the cause of diseases classified elsewhere ==

== ENCOUNTER 2019-12-06 22:28 | Inpatient (IN) | payer OTHER ==
[~2019-12-06] VITALS: Ht 157.5 cm; Wt 57.4 kg
[~2019-12-06 22:28] MED LIST changes: +Lopressor 25 mg25 MG PO
[2019-12-07 00:26] LABS: BASOPHILS ABSOLUTE AUTO 0.01 K/mm3 (0.00-0.23); BASOPHILS PERCENT AUTO 0 % (0-2); EOSINOPHILS ABSOLUTE AUTO 0.05 K/mm3 (0.00-0.68); EOSINOPHILS PERCENT AUTO 1 % (0-6); Hematocrit 40.3 % (33.0-51.0); Hemoglobin 12.8 g/dL (11.5-16.0); IMMATURE GRAN ABSOLUTE AUTO 0.03 K/mm3 (0.00-0.10); IMMATURE GRAN PERCENT AUTO 0 % (0-1); LYMPHOCYTES ABSOLUTE AUTO 0.85 K/mm3 (0.84-5.20); LYMPHOCYTES PERCENT AUTO 11 % (21-46); MONOCYTES PERCENT AUTO 3 % (4-13); Mean Corpuscular HGB 24.2 pg (26.0-34.0); Mean Corpuscular HGB Conc 31.8 g/dL (31.5-36.5); Mean Corpuscular Volume 76 fL (80-100); NEUTROPHILS ABSOLUTE AUTO 6.67 K/mm3 (1.96-9.15); NEUTROPHILS PERCENT AUTO 85 % (41-73); Platelet Count 190 K/mm3 (150-400); RDW Coefficient Variation 19.2 % (11.7-14.2); RDW Standard Deviation 51.8 fL (35.1-46.3); Red Blood Cell Count 5.28 M/mm3 (3.80-5.20); White Blood Cell Count 7.81 K/mm3 (4.00-11.30)
[2019-12-07 00:39] LABS: Alanine Aminotransfer (ALT/SGP 16 U/L (12-78); Albumin, Blood 3.1 g/dL (3.4-5.0); Albumin/Globulin Ratio 0.7 (0.8-1.8); Alk Phos 160 U/L (50-136); Anion Gap 9 mmol/L (6-16); Aspartate Aminotrans (AST/SGOT 18 U/L (12-37); Bilirubin, Total 0.6 mg/dL (0.1-1.0); Blood Urea Nitrogen 11 mg/dL (8-24); Bun/Creatinine Ratio 12.4 (12.0-20.0); CO2, Blood 21 mmol/L (21-32); Calcium, Blood 8.4 mg/dL (8.5-10.1); Chloride, Blood 108 mmol/L (98-108); Creatinine, Blood 0.88 mg/dL (0.40-1.00); Globulin, Blood 4.7 g/dL (2.2-4.0); Glomerular Filtration Rate >60 (60-); Glucose, Blood 93 mg/dL (70-99); Potassium, Blood 3.3 mmol/L (3.5-5.5); Sodium, Blood 138 mmol/L (136-145); Total Protein, Blood 7.8 g/dL (6.4-8.2)
[2019-12-07 00:46] LABS: Troponin I <0.015 ng/mL (0.000-0.040)
--- NOTE | 2019-12-07 04:55 | NUR ---
ADMIT NOTE PATIENT ARRIVED FROM ER VIA GURNEY, TRANSFERED TO PCU BED VIA SLIP SHEET BY [facility] STAFF WITHOUT ISSUE. PATIENT ALERT AND ORIENTED, ALL VSS AND WNL. PT C/O PAIN TO RIGHT ANKLE AND MID BACK, REPORTING FROM RECENT FALL AT HOME. WILL TREAT PER EMAR AND UNIT PROTOCOL. PATIENT HAS GLASSES BUT TEETH ARE AT HOME. PATIENT ORIENTED TO UNIT. WILL CONTINUE TO MONITOR
--- NOTE | 2019-12-07 07:00 | NUR ---
SHIFT SUMMARY NO CHANGES FROM ADMINT NOTE. PATIENT WAS TREATED PER MD ORDER AND UNIT PROTOCOL WITH NO ISSUES. VSS. PASSED CARE AND REPORT TO ONCOMING SHIFT AT 0700, PATIENT ASLEEP IN BED, CALL LIGHT IN REACH.
--- NOTE | 2019-12-07 07:35 | NUR ---
PATIENT CARE ASSUMED.
[2019-12-07 09:35] LABS: Adenovirus Not Detected (NOT DETECT); Bordetella pertussis Not Detected (NOT DETECT); Chlamydophila pneumoniae Not Detected (NOT DETECT); Coronavirus 229E Not Detected (NOT DETECT); Coronavirus HKU1 Not Detected (NOT DETECT); Coronavirus NL63 Not Detected (NOT DETECT); Coronavirus OC43 Not Detected (NOT DETECT); Human Metapneumovirus Not Detected (NOT DETECT); Human Rhinovirus/Enterovirus Not Detected (NOT DETECT); Influenza A Not Detected (NOT DETECT); Influenza A/2009-H1 Not Detected (NOT DETECT); Influenza A/H1 Not Detected (NOT DETECT); Influenza A/H3 Not Detected (NOT DETECT); Influenza B Not Detected (NOT DETECT); Mycoplasma pneumoniae Not Detected (NOT DETECT); Parainfluenza Virus 1 Not Detected (NOT DETECT); Parainfluenza Virus 2 Not Detected (NOT DETECT); Parainfluenza Virus 3 Not Detected (NOT DETECT); Parainfluenza Virus 4 Not Detected (NOT DETECT); Respiratory Syncytial Virus Not Detected (NOT DETECT)
--- NOTE | 2019-12-07 10:52 | NUR ---
Patient is sitting up in bed and alert. Patient openly shares about her medical issues, her family unit complications, her Sabianism valerie and her little dog. Patient shares about the of her son and gets very tearful about it, but then patient tells about how she had a near experience and saw God and her son, mother and brother all in heaven. I listen empathically, normalize patient's experience and provide grief support, pastoral counselor manager and prayer. Patient responds well and displays evidence of reduced stress. I will continue to remain available to patient and family.
[2019-12-07 11:07] LABS: Hemoglobin 10.6 g/dL (11.5-16.0); Mean Corpuscular HGB 24.4 pg (26.0-34.0); Mean Corpuscular HGB Conc 32.1 g/dL (31.5-36.5); Mean Corpuscular Volume 76 fL (80-100); Platelet Count 175 K/mm3 (150-400); RDW Coefficient Variation 18.6 % (11.7-14.2); RDW Standard Deviation 51.1 fL (35.1-46.3); Red Blood Cell Count 4.35 M/mm3 (3.80-5.20); White Blood Cell Count 21.72 K/mm3 (4.00-11.30)
[2019-12-07 11:26] LABS: Alanine Aminotransfer (ALT/SGP 18 U/L (12-78); Albumin, Blood 2.5 g/dL (3.4-5.0); Albumin/Globulin Ratio 0.6 (0.8-1.8); Alk Phos 130 U/L (50-136); Anion Gap 7 mmol/L (6-16); Aspartate Aminotrans (AST/SGOT 15 U/L (12-37); Bilirubin, Total 0.5 mg/dL (0.1-1.0); Blood Urea Nitrogen 10 mg/dL (8-24); Bun/Creatinine Ratio 13.8 (12.0-20.0); CO2, Blood 21 mmol/L (21-32); Calcium, Blood 7.9 mg/dL (8.5-10.1); Chloride, Blood 114 mmol/L (98-108); Creatinine, Blood 0.73 mg/dL (0.40-1.00); Globulin, Blood 4.2 g/dL (2.2-4.0); Glomerular Filtration Rate >60 (60-); Glucose, Blood 95 mg/dL (70-99); Potassium, Blood 3.7 mmol/L (3.5-5.5); Sodium, Blood 142 mmol/L (136-145); Total Protein, Blood 6.7 g/dL (6.4-8.2)
--- NOTE | 2019-12-07 11:52 | NUR ---
RETURNED CALL TO PT'S . HE STATES HE WILL BRING IN MEDICATION LIST WHEN HE COMES IN TO VISIT LATER TODAY
[2019-12-07 13:06] LABS: Source, Urine Clean Catch
[2019-12-07 13:09] LABS: Bilirubin, Urine Neg (Neg); Blood, Urine Neg (Neg); Glucose Qualitative, Urine Neg (Neg); Ketones, Urine Neg (Neg); Leukocyte Esterase, Urine 1+ (Neg); Nitrite, Urine Neg (Neg); Protein, Urine Neg (Neg); Urobilinogen, Urine NORM (Normal)
[2019-12-07] MEDS ORDERED: Bentyl10 MG PO (13:19)
[2019-12-07] MEDS ORDERED: PREG300 PO (13:22)
[2019-12-07] MEDS ORDERED: OXYB5ER PO (13:24)
[2019-12-07] MEDS ORDERED: PRILOSEC OTC20 MG PO (13:26)
[2019-12-07] MEDS ORDERED: Flonase 0.05% N16 GM (13:27)
[2019-12-07 13:31] LABS: Appearance, Urine Clear (Clear); Color, Urine Yellow (P-Yellow)
[2019-12-07 13:34] LABS: Bacteria Mod /hpf; Red Blood Cells, Urine Not Seen /hpf (0-2); Squamous Epithelial Cells Mod /hpf (Few)
--- NOTE | 2019-12-07 13:43 | NUR ---
PT'S POINTED OUT THAT PT'S LEFT ANKLE WAS BRUISED AND SWOLLEN. PT HAS BEEN UNABLE TO BEAR WEIGHT ON IT AND STATES SHE FELL 3 TIMES LAST NIGHT. CALL TO DR CONTRERAS WHO ORDERED XRAY OF ANKLE. STATES HE WILL REVIEW MED REC AND REVIEW PAIN MED ORDERS WELL. PT STATED PHONE WAS NOT WORKING IN ROOM, CALL TO MAINTENANCE TO FIX.
[2019-12-07 13:56] LABS: U Amphetamine Screen Not Detected; U Barbituate Screen Not Detected; U Benzodiazapine Screen DETECTED; U Buprenorphine Screen Not Detected; U Cannabinoids Screen DETECTED; U Cocaine Screen Not Detected; U Methadone Screen Not Detected; U Methamphetamine Screen Not Detected; U Opiates Screen Not Detected; U Oxycodone Screen Not Detected; U Phencyclidine Screen Not Detected; U Propoxyphene Screen Not Detected
--- NOTE | 2019-12-07 17:44 | NUR ---
PATIENT RESTING IN BED, STATES APPETITE FOR DINNER. EUQAL BILATERAL CHEST RISE WITH BREATH, NO SIGNS OF ACUTE DISTRESS. PATIENT STATES 8/10 PAIN FROM HEADACHE WITH NO LIGHT SENSITIVITY. PATIENT AGREEABLE TO TAKING PAIN MEDICATION FOR HEADACHE AND ANKLE PAIN, WCTM.
--- NOTE | 2019-12-07 18:02 | NUR ---
PATIENT SHARED WIT THIS RN THAT SHE HAD A HEADACHE AND THE BRUISED ANKLE FROM FALLING SEVERAL TIMES BEFORE ADMISSION TO HOSPITAL. SHE STATES THAT THE REASON FOR THE FALLS WAS "TRYING TO GET AWAY FROM [place]". [place] IS THE PATIENT'S SPOUSE. THE PATIENT STATED THAT [place] WANTED HER TO GO TO THE HOSPITAL AND SHE DIDN'T WANT TO GO. THIS RN SPOKE WITH CASE MANAGEMENT, KENA RAMIREZ WHO STATED SHE WOULD FOLLOW UP WITH THIS INFORMATION.
--- NOTE | 2019-12-07 18:04 | NUR ---
PATIENT ADMITTED TO PCU VIA ED WITH ALTERED MENTATION AND REPORT OF RECENT SICKNESS OF COUGH AND SHORTNESS OF BREATH, AND SEVERAL FALLS IMMEDIATELY PRIOR TO BEING BROUGHT TO THE HOSPITAL. PATIENT ENDORSES NOT REMEMBERING BEING BROUGHT TO THE HOSPITAL. HISTORY OF COPD, ABDOMINAL CT SHOWS LIKELY BIBASILAR PNEUMONIA. PATIENT ENDORSES SEVERAL FALLS IMMEDIATELY PRIOR TO ADMISSION THAT LEAD TO HEAD TRAUMA AND TRAUMA TO L. ANKLE. NOTE FILED AT 4624 12/07/19 REGARDING PATIENT REPORT OF FALLS AND THIS RN'S COMMUNICATION TO CASE MANAGEMENT, KENA RAMIREZ. PATIENT EXPERIENCED PAINFUL HEADACHE (8/10 PAIN) THROUGHOUT DAY, AND PAIN IN L. ANKLE.
--- NOTE | 2019-12-07 19:45 | NUR ---
ASSUMED CARE PATIENT AWAKE LYING IN BED IN NO SIGN OF DISTRESS, TWO FAMILY/FRIENDS IN ROOM. VSS AND WNL. O2 SATURATION AT 99% ON 2L NC. PATIENT C/O 7/10 PAIN TO LEFT ANKLE; PATIENT REPOSITIONED AND WILL TREAT PER EMAR. LUNGS CLEAR BUT COARSE. PATIENT FORGETFULL OF DAY'S EVENTS, SOMETIMES CONFUSED IN SPEECH. WILL CONTINUE TO MONITOR AND PROVIDE CARE, BED ALARM ON, CALL LIGHT IN REACH.
[2019-12-08 04:10] LABS: BASOPHILS ABSOLUTE AUTO 0.01 K/mm3 (0.00-0.23); BASOPHILS PERCENT AUTO 0 % (0-2); EOSINOPHILS PERCENT AUTO 0 % (0-6); Hematocrit 31.3 % (33.0-51.0); Hemoglobin 10.1 g/dL (11.5-16.0); IMMATURE GRAN ABSOLUTE AUTO 0.08 K/mm3 (0.00-0.10); IMMATURE GRAN PERCENT AUTO 1 % (0-1); LYMPHOCYTES ABSOLUTE AUTO 0.86 K/mm3 (0.84-5.20); LYMPHOCYTES PERCENT AUTO 6 % (21-46); MONOCYTES ABSOLUTE AUTO 0.17 K/mm3 (0.16-1.47); MONOCYTES PERCENT AUTO 1 % (4-13); Mean Corpuscular HGB 24.3 pg (26.0-34.0); Mean Corpuscular HGB Conc 32.3 g/dL (31.5-36.5); Mean Corpuscular Volume 75 fL (80-100); NEUTROPHILS ABSOLUTE AUTO 13.96 K/mm3 (1.96-9.15); NEUTROPHILS PERCENT AUTO 93 % (41-73); Platelet Count 158 K/mm3 (150-400); RDW Coefficient Variation 18.6 % (11.7-14.2); RDW Standard Deviation 51.2 fL (35.1-46.3); Red Blood Cell Count 4.16 M/mm3 (3.80-5.20); White Blood Cell Count 15.08 K/mm3 (4.00-11.30)
[2019-12-08 04:26] LABS: Anion Gap 7 mmol/L (6-16); Blood Urea Nitrogen 7 mg/dL (8-24); Bun/Creatinine Ratio 10.9 (12.0-20.0); CO2, Blood 21 mmol/L (21-32); Calcium, Blood 8.3 mg/dL (8.5-10.1); Chloride, Blood 114 mmol/L (98-108); Creatinine, Blood 0.65 mg/dL (0.40-1.00); Glomerular Filtration Rate >60 (60-); Glucose, Blood 118 mg/dL (70-99); Potassium, Blood 3.5 mmol/L (3.5-5.5); Sodium, Blood 142 mmol/L (136-145)
--- NOTE | 2019-12-08 07:29 | NUR ---
ASSUMED PATIENT CARE. PATIENT RESTING COMFORTABLY IN BED, NO SIGNS OF ACUTE DISTRESS, EQUAL BILATERAL CHEST RISE WITH BREATH, WCTM.
--- NOTE | 2019-12-08 07:37 | NUR ---
SHIFT SUMMARY NO SIGNIFICANT CHANGES FROM INITIAL NOTE. PATIENT WAS MEDICATED AND TREATED PER EMAR AND UNIT PROTOCOL. ALL VSS T/O SHIFT. PATIENT TITRATED OFF O2 AROUND MIDNIGHT WITH RESULTING SATURATION OF 94-95% ON RA. PATIENT CONTINUED TO DISPLAY SIGNS OF MILD INTERMITTENT CONFUSION. PASSED CARE AND REPORT TO ONCOMING SHIFT AT 0700, PATIENT LYING AWAKE IN BED, CALL LIGHT IN REACH
--- NOTE | 2019-12-08 09:35 | NUR ---
PATIENT RESTING COMFORTABLY IN BED EATING BREAKFAST, APPEARS TO TOLERATE WELL. EQUAL BILATERAL CHEST RISE WITH BREATHS, NO SIGNS OF ACUTE DISTRESS, WCTM.
--- NOTE | 2019-12-08 12:53 | NUR ---
PATIENT SITTING IN CHAIR, COMPLAINS OF HEADACHE, BACK AND ANKLE PAIN. DOSE OFIBUPROFEN REQUESTED FROM PHARMACY. TM.
--- NOTE | 2019-12-08 15:00 | NUR ---
RELINQUISHED PATIENT CARE.
--- NOTE | 2019-12-08 15:52 | NUR ---
Patient is lying in bed and alert. Because therapeutic alliance is already established, patient immediately share about her personal struggles, about the loved ones she has buried and about family unit complications. Patient is very emotional and cried through several tissues. I listen empathically, normalize patient's experience and provide emotional and greif support, pastoral vocational counselor and prayer. Patient responds well and shows signs of (at least momentary) peace. Patient thanks me for the visit. I will continue to remain available to patient and family.
--- NOTE | 2019-12-08 16:23 | NUR ---
PCU TRANSFER- PT ARRIVED TO ROOM 335 FROM PCU. PT A/OX3. PT REPORTS 5/10 HEAD AND BACK PAIN. PT DENIES ANY OTHER COMPLAINTS. PRN MOTRIN GIVEN IN PCU. LS DIMINISHED WITH SOME COARSENESS, ON RA, RESP E/U. PT DENIES ANY SOB. HRR. NO EDEMA PRESENT. PT WITH FLAT AFFECT. PT ORIENTED TO ROOM AND CALL SYSTEM, CALL LIGHT IN REACH.
--- NOTE | 2019-12-09 03:50 | NUR ---
spoke to Dr Ingram regarding pt c/o chest pain. pt is not demonstative but has a hx of cardiac arrest. called to make dr Ingram aware. hr BP was elevated so i had given some ativan 1mg per emar. the recheck of her BP was improved 147/96. receved order per emar.
[2019-12-09 08:10] LABS: BASOPHILS ABSOLUTE AUTO 0.02 K/mm3 (0.00-0.23); BASOPHILS PERCENT AUTO 0 % (0-2); EOSINOPHILS ABSOLUTE AUTO 0.05 K/mm3 (0.00-0.68); EOSINOPHILS PERCENT AUTO 0 % (0-6); Hematocrit 34.8 % (33.0-51.0); Hemoglobin 11.4 g/dL (11.5-16.0); IMMATURE GRAN ABSOLUTE AUTO 0.12 K/mm3 (0.00-0.10); IMMATURE GRAN PERCENT AUTO 1 % (0-1); LYMPHOCYTES ABSOLUTE AUTO 2.98 K/mm3 (0.84-5.20); LYMPHOCYTES PERCENT AUTO 18 % (21-46); MONOCYTES ABSOLUTE AUTO 0.87 K/mm3 (0.16-1.47); MONOCYTES PERCENT AUTO 5 % (4-13); Mean Corpuscular HGB 24.4 pg (26.0-34.0); Mean Corpuscular HGB Conc 32.8 g/dL (31.5-36.5); Mean Corpuscular Volume 75 fL (80-100); NEUTROPHILS ABSOLUTE AUTO 12.94 K/mm3 (1.96-9.15); NEUTROPHILS PERCENT AUTO 76 % (41-73); Platelet Count 199 K/mm3 (150-400); RDW Coefficient Variation 18.8 % (11.7-14.2); RDW Standard Deviation 50.4 fL (35.1-46.3); Red Blood Cell Count 4.67 M/mm3 (3.80-5.20); White Blood Cell Count 16.98 K/mm3 (4.00-11.30)
[2019-12-09 08:11] LABS: Mean Platelet Volume 11.8 fL (9.1-12.4)
[2019-12-09 08:44] LABS: Alanine Aminotransfer (ALT/SGP 15 U/L (12-78); Albumin, Blood 2.9 g/dL (3.4-5.0); Albumin/Globulin Ratio 0.6 (0.8-1.8); Alk Phos 141 U/L (50-136); Anion Gap 7 mmol/L (6-16); Aspartate Aminotrans (AST/SGOT 13 U/L (12-37); Bilirubin, Total 0.5 mg/dL (0.1-1.0); Blood Urea Nitrogen 9 mg/dL (8-24); CO2, Blood 23 mmol/L (21-32); Calcium, Blood 8.9 mg/dL (8.5-10.1); Chloride, Blood 109 mmol/L (98-108); Creatinine, Blood 0.75 mg/dL (0.40-1.00); Globulin, Blood 4.9 g/dL (2.2-4.0); Glomerular Filtration Rate >60 (60-); Glucose, Blood 81 mg/dL (70-99); Potassium, Blood 3.1 mmol/L (3.5-5.5); Sodium, Blood 139 mmol/L (136-145); Total Protein, Blood 7.8 g/dL (6.4-8.2)
[2019-12-09] MEDS ORDERED: ACET325 PO (11:37)
[2019-12-09] MEDS ORDERED: LEVOFLOXACIN750 MG PO (11:38)
[2019-12-09] MEDS ORDERED: ONDA4ODT MM (11:38)
[2019-12-09] MEDS ORDERED: PRED20 PO (11:38)
[2019-12-09] MEDS ORDERED: Florastor250 MG PO (11:39)
--- NOTE | 2019-12-09 13:22 | NUR ---
DISCHARGE REVIEWED WITH PT AND HUSB. PT VERBALIZED UNDERSTANDING OF MEDS AND DR APPOINTMENT NEEDING SET. NO TELE. IV PULLED INTACT. PT DRESSED SELF. PT OUT DOOR AT 1325
== END 2019-12-09 13:25 | disposition home or self-care (01) | DRG 871 ==
LOC: ER 22:28 → PCU 22:29 → MEDS 12-08 15:04
PROVIDERS: Emergency Medicine; Family Medicine; Pharmacist; ADMIT Internal Medicine
DX: A41.9 Sepsis, unspecified organism (principal); J18.9 Pneumonia, unspecified organism; J96.01 Acute respiratory failure with hypoxia; G93.40 Encephalopathy, unspecified; J44.1 Chronic obstructive pulmonary disease with (acute) exacerbation; J44.0 Chronic obstructive pulmonary disease with (acute) lower respiratory infection; R65.20 Severe sepsis without septic shock; I16.0 Hypertensive urgency; I10 Essential (primary) hypertension; E87.6 Hypokalemia; E86.0 Dehydration; M25.571 Pain in right ankle and joints of right foot; E03.9 Hypothyroidism, unspecified; F41.9 Anxiety disorder, unspecified; F32.9 Major depressive disorder, single episode, unspecified; I95.9 Hypotension, unspecified; F17.200 Nicotine dependence, unspecified, uncomplicated; Z86.74 Personal history of sudden cardiac arrest; Z88.5 Allergy status to narcotic agent; Z88.0 Allergy status to penicillin
CPT/HCPCS: 0099U; 36415; 70450; 71045; 71046; 73610; 74176; 80048; 80053; 80202; 81001; 82140; 83605; 83880; 84484; 85025; 85027; 87040; 87070; 87077; 87086; 87185; 87205; 93005; 93010; 94640; 94760; 94761; 96361; 96365; 96366; 96367; 97110; 97116; 97162; 97166; 97535; 99285-25; A9270; G0378; J0696; J1650; J1956; J3010; J3370; J3480; J7030; J7050; J7512

== ENCOUNTER 2020-05-24 08:57 | Day surgery (SDC) | payer OTHER ==
[~2020-05-24] VITALS: Ht 157.5 cm; Wt 51.0 kg
[~2020-05-24 08:57] MED LIST changes: +Bentyl10 MG PO; +Flonase 0.05% N16 GM; +Florastor250 MG PO; +LEVOFLOXACIN750 MG PO; +OXYB5ER PO; +PRILOSEC OTC20 MG PO
--- NOTE | 2020-05-24 16:47 | NUR ---
05/24/20 1647 Alexa Jain S PT. WITH FAINT WHEEZES RIGHT SIDE POSTERIORLY. PT. SATS 93% WHEN FIRST IN PREOP BUT UP AGAIN AT 1017 WITH 97%SATS RA. PT. VERBALIZES HAVING CHEST PAIN TODAY BUT OK AT 1017. PT. VERBALIZES SHE WASN'T GIVEN ANY OF HER MEDICATIONS TODAY. PT. WANTED TO TALK TO A PT. ADVOCATE SO PT. PROCEDURE POSTPONED UNTIL TALKING WITH PT. ADVOCATE. REPORT GIVEN TO [facility] TO DO PT. PROCEDURE.
[2020-06-21] MEDS ORDERED: Ventolin5 MG/1 ML (11:39)
[2020-06-21] MEDS ORDERED: ANORO ELLIPTA1 EAC1 INH (11:39)
[2020-06-21] MEDS ORDERED: Bentyl10 MG (11:40)
[2020-06-21] MEDS ORDERED: BUSP10 PO (11:40)
[2020-06-21] MEDS ORDERED: VENL150ER PO (11:40)
[2020-06-21] MEDS ORDERED: Ativan1 MG PO ×2 (11:40→14:28)
[2020-06-21] MEDS ORDERED: LEVSOD25 PO (11:41)
[2020-06-21] MEDS ORDERED: PREG300 PO (11:41)
[2020-06-21] MEDS ORDERED: DIPATR PO (11:41)
[2020-06-21] MEDS ORDERED: FLUT.05NI (11:41)
[2020-06-21] MEDS ORDERED: METO100 PO (11:42)
[2020-06-21] MEDS ORDERED: PROM25 PO (11:42)
[2020-06-21] MEDS ORDERED: NITR.4SL SL (11:42)
[2020-06-21] MEDS ORDERED: PROAIR DIGIHAL90 MCG INH (11:42)
[2020-06-21] MEDS ORDERED: Desyrel150 MG PO (11:43)
[2020-06-21] MEDS ORDERED: Robaxin-750750 MG PO (11:43)
[2020-06-21] MEDS ORDERED: OXYB5 PO (14:25)
[2020-06-21] MEDS ORDERED: VENL75ER PO (14:26)
[2020-06-21] MEDS ORDERED: METO50ER PO (14:27)
[2020-06-21] MEDS ORDERED: PRAZ5 PO (14:28)
[2020-06-21] MEDS ORDERED: FOSAMAX70 MG PO (14:30)
== END 2020-05-24 12:05 | disposition home or self-care (01) ==
LOC: ORSCSDS 08:57
PROVIDERS: Internal Medicine Gastroenterology
PROC: 0DJ08ZZ Inspection of Upper Intestinal Tract, Via Natural or Artificial Opening Endoscopic (ICD-10-PCS; principal; 2020-05-24 10:00)
DX: R13.10 Dysphagia, unspecified (principal); I10 Essential (primary) hypertension; K21.9 Gastro-esophageal reflux disease without esophagitis; D64.9 Anemia, unspecified; G40.909 Epilepsy, unspecified, not intractable, without status epilepticus; E03.9 Hypothyroidism, unspecified; F43.10 Post-traumatic stress disorder, unspecified; K74.60 Unspecified cirrhosis of liver; B19.20 Unspecified viral hepatitis C without hepatic coma; F41.8 Other specified anxiety disorders; K58.9 Irritable bowel syndrome, unspecified; J44.9 Chronic obstructive pulmonary disease, unspecified; F17.210 Nicotine dependence, cigarettes, uncomplicated; Z79.899 Other long term (current) drug therapy
CPT/HCPCS: J2704; J7120

== ENCOUNTER → 2020-07-03 | Outpatient (CLI) | payer OTHER ==
[~2020-07-03] MED LIST changes: +ANORO ELLIPTA1 EAC1 INH; +BUSP10 PO; +Bentyl10 MG; +Desyrel150 MG PO; +FOSAMAX70 MG PO; +LEVSOD25 PO; +METO100 PO; +PRAZ5 PO; +PROAIR DIGIHAL90 MCG INH; +Robaxin-750750 MG PO; +Ventolin5 MG/1 ML
== END | disposition home or self-care (01) ==
LOC: LAB SHORT 19:52 → LAB 19:52
DX: R30.0 Dysuria (principal)
CPT/HCPCS: 87077; 87086; 87186

== ENCOUNTER → 2020-11-07 | Outpatient (CLI) | payer OTHER | END | disposition home or self-care (01) | LOC: LAB 17:14 | DX: R10.30 Lower abdominal pain, unspecified (principal) | CPT/HCPCS: 87077; 87086; 87186 ==

== ENCOUNTER → 2021-07-03 | Outpatient (CLI) | payer OTHER | END | disposition home or self-care (01) | LOC: LAB SHORT 17:43 → LAB 17:43 | DX: N30.01 Acute cystitis with hematuria (principal); R30.0 Dysuria | CPT/HCPCS: 87077; 87086; 87186 ==

== ENCOUNTER 2021-09-10 10:36 | Day surgery (SDC) | payer OTHER ==
[~2021-09-10] VITALS: Ht 157.5 cm; Wt 53.6 kg
--- NOTE | 2021-09-10 13:43 | NUR ---
09/10/21 1343 Kayla Li LATE ENTRY: CORRECTION- PAIN 07/26 WITH "ALL OVER PAIN." NOTED PRE OP, TYPO IN VITALS OF 0.
== END 2021-09-10 13:37 | disposition home or self-care (01) ==
LOC: ORSCSDS 10:36
PROVIDERS: Internal Medicine Gastroenterology
PROC: 0DJ08ZZ Inspection of Upper Intestinal Tract, Via Natural or Artificial Opening Endoscopic (ICD-10-PCS; principal; 2021-09-10 11:45)
DX: R11.0 Nausea (principal); R13.10 Dysphagia, unspecified; K59.00 Constipation, unspecified; K74.60 Unspecified cirrhosis of liver; F17.210 Nicotine dependence, cigarettes, uncomplicated; I10 Essential (primary) hypertension; Z79.899 Other long term (current) drug therapy
CPT/HCPCS: J2704; J7120

== ENCOUNTER 2021-10-02 08:56 | Day surgery (SDC) | payer OTHER ==
[~2021-10-02] VITALS: Ht 157.5 cm; Wt 54.8 kg
[~2021-10-02 08:56] MED LIST changes: +POTCHL20ER PO
[2021-10-02] MEDS ORDERED: HYDROCODONE-AC1 EAC7 (09:26)
--- NOTE | 2021-10-02 09:37 | NUR ---
10/02/21 0937 Marzena Laws FIRST ATTEMPT MISSED BY RENAN IN THE RIGHT HAND. SECOND ATTEMP SUCCESFUL IN RIGHT FOREARM BY GIGI
== END 2021-10-02 10:41 | disposition home or self-care (01) ==
LOC: ORSCSDS 08:56
PROVIDERS: Internal Medicine Gastroenterology
PROC: 0DJ08ZZ Inspection of Upper Intestinal Tract, Via Natural or Artificial Opening Endoscopic (ICD-10-PCS; principal; 2021-10-02 10:00)
DX: R13.10 Dysphagia, unspecified (principal); R11.0 Nausea; K74.60 Unspecified cirrhosis of liver; K59.00 Constipation, unspecified; K21.9 Gastro-esophageal reflux disease without esophagitis; D64.9 Anemia, unspecified; I10 Essential (primary) hypertension; E03.9 Hypothyroidism, unspecified; J44.9 Chronic obstructive pulmonary disease, unspecified; F41.8 Other specified anxiety disorders; F17.210 Nicotine dependence, cigarettes, uncomplicated; Z79.899 Other long term (current) drug therapy
CPT/HCPCS: J2704; J7120

== ENCOUNTER 2022-01-01 13:37 | Day surgery (SDC) | payer OTHER ==
[~2022-01-01] VITALS: Ht 157.5 cm; Wt 56.0 kg
[~2022-01-01 13:37] MED LIST changes: +HYDROCODONE-AC1 EAC7
== END 2022-01-01 15:26 | disposition home or self-care (01) ==
LOC: ORSCSDS 13:37
PROVIDERS: Internal Medicine Gastroenterology
PROC: 0DJ08ZZ Inspection of Upper Intestinal Tract, Via Natural or Artificial Opening Endoscopic (ICD-10-PCS; principal; 2022-01-01 14:30)
DX: R13.12 Dysphagia, oropharyngeal phase (principal); K74.60 Unspecified cirrhosis of liver; K21.9 Gastro-esophageal reflux disease without esophagitis; I10 Essential (primary) hypertension; F03.90 Unspecified dementia, unspecified severity, without behavioral disturbance, psychotic disturbance, mood disturbance, and anxiety; F41.8 Other specified anxiety disorders; J44.9 Chronic obstructive pulmonary disease, unspecified; R19.4 Change in bowel habit; Z86.19 Personal history of other infectious and parasitic diseases; R11.0 Nausea; F17.210 Nicotine dependence, cigarettes, uncomplicated; Z79.899 Other long term (current) drug therapy
CPT/HCPCS: J2704; J7120

== ENCOUNTER 2022-03-05 15:50 | Emergency (ER) | payer OTHER ==
[~2022-03-05] VITALS: Ht 157.5 cm; Wt 53.5 kg
[2022-03-05 16:44] LABS: BASOPHILS ABSOLUTE AUTO 0.03 K/mm3 (0.00-0.23); BASOPHILS PERCENT AUTO 0 % (0-2); EOSINOPHILS ABSOLUTE AUTO 0.11 K/mm3 (0.00-0.68); EOSINOPHILS PERCENT AUTO 2 % (0-6); Hematocrit 39.2 % (33.0-51.0); Hemoglobin 12.9 g/dL (11.5-16.0); IMMATURE GRAN ABSOLUTE AUTO 0.02 K/mm3 (0.00-0.10); IMMATURE GRAN PERCENT AUTO 0 % (0-1); LYMPHOCYTES ABSOLUTE AUTO 2.15 K/mm3 (0.84-5.20); LYMPHOCYTES PERCENT AUTO 32 % (21-46); MONOCYTES ABSOLUTE AUTO 0.47 K/mm3 (0.16-1.47); MONOCYTES PERCENT AUTO 7 % (4-13); Mean Corpuscular HGB 27.7 pg (26.0-34.0); Mean Corpuscular HGB Conc 32.9 g/dL (31.5-36.5); Mean Corpuscular Volume 84 fL (80-100); Mean Platelet Volume 11.8 fL (9.1-12.4); NEUTROPHILS ABSOLUTE AUTO 4.02 K/mm3 (1.96-9.15); NEUTROPHILS PERCENT AUTO 59 % (41-73); Platelet Count 199 K/mm3 (150-400); RDW Coefficient Variation 15.6 % (11.7-14.2); RDW Standard Deviation 47.8 fL (35.1-46.3); Red Blood Cell Count 4.66 M/mm3 (3.80-5.20)
[2022-03-05 16:59] LABS: Alanine Aminotransfer (ALT/SGP 13 U/L (12-78); Albumin, Blood 3.2 g/dL (3.4-5.0); Albumin/Globulin Ratio 0.7 (0.8-1.8); Alk Phos 142 U/L (50-136); Anion Gap 5 mmol/L (6-16); Aspartate Aminotrans (AST/SGOT 13 U/L (12-37); Bilirubin, Total 0.5 mg/dL (0.1-1.0); Blood Urea Nitrogen 8 mg/dL (8-24); Bun/Creatinine Ratio 10.9 (12.0-20.0); CO2, Blood 26 mmol/L (21-32); Calcium, Blood 8.9 mg/dL (8.5-10.1); Chloride, Blood 112 mmol/L (98-108); Creatinine, Blood 0.73 mg/dL (0.40-1.00); Globulin, Blood 4.6 g/dL (2.2-4.0); Glomerular Filtration Rate >60 (60-); Glucose, Blood 100 mg/dL (70-99); Potassium, Blood 3.5 mmol/L (3.5-5.5); Sodium, Blood 143 mmol/L (136-145); Total Protein, Blood 7.8 g/dL (6.4-8.2)
[2022-03-05 18:21] LABS: Source, Urine Clean Catch
[2022-03-05 18:32] LABS: Blood, Urine 2+ (Neg); Glucose Qualitative, Urine Neg (Neg); Ketones, Urine 1+ (Neg); Leukocyte Esterase, Urine 2+ (Neg); Nitrite, Urine Neg (Neg); Protein, Urine 2+ (Neg); Urobilinogen, Urine 1+ (Normal)
[2022-03-05 19:03] LABS: Appearance, Urine Hazy (Clear); Color, Urine Amber (P-Yellow)
[2022-03-05 19:04] LABS: Bilirubin, Urine 1+ (Neg)
[2022-03-05 19:05] LABS: Bacteria Mod /hpf; Mucus Mod (0-Heavy); Squamous Epithelial Cells Few /hpf (Few)
== END 2022-03-05 19:05 | disposition home or self-care (01) ==
LOC: ER 15:50
PROVIDERS: Physician Assistant
DX: S00.83XA Contusion of other part of head, initial encounter (principal); I10 Essential (primary) hypertension; G40.909 Epilepsy, unspecified, not intractable, without status epilepticus; E03.9 Hypothyroidism, unspecified; J44.9 Chronic obstructive pulmonary disease, unspecified; F17.210 Nicotine dependence, cigarettes, uncomplicated; Z88.0 Allergy status to penicillin; Z88.6 Allergy status to analgesic agent; Z88.5 Allergy status to narcotic agent; Z88.8 Allergy status to other drugs, medicaments and biological substances; Z79.899 Other long term (current) drug therapy; W18.30XA Fall on same level, unspecified, initial encounter
CPT/HCPCS: 36415; 70450; 80053; 81001; 85025; 87086; 93005; 93010; 99284-25; A9270

== ENCOUNTER 2022-04-09 14:15 | Emergency (ER) | payer OTHER ==
[~2022-04-09] VITALS: Ht 157.5 cm; Wt 50.8 kg
[2022-04-09 15:12] LABS: BASOPHILS ABSOLUTE AUTO 0.03 K/mm3 (0.00-0.23); BASOPHILS PERCENT AUTO 0 % (0-2); EOSINOPHILS ABSOLUTE AUTO 0.05 K/mm3 (0.00-0.68); EOSINOPHILS PERCENT AUTO 1 % (0-6); Hematocrit 41.8 % (33.0-51.0); Hemoglobin 13.8 g/dL (11.5-16.0); IMMATURE GRAN ABSOLUTE AUTO 0.02 K/mm3 (0.00-0.10); IMMATURE GRAN PERCENT AUTO 0 % (0-1); LYMPHOCYTES ABSOLUTE AUTO 2.42 K/mm3 (0.84-5.20); LYMPHOCYTES PERCENT AUTO 32 % (21-46); MONOCYTES ABSOLUTE AUTO 0.56 K/mm3 (0.16-1.47); MONOCYTES PERCENT AUTO 7 % (4-13); Mean Corpuscular HGB 27.7 pg (26.0-34.0); Mean Corpuscular Volume 84 fL (80-100); Mean Platelet Volume 11.6 fL (9.1-12.4); NEUTROPHILS ABSOLUTE AUTO 4.56 K/mm3 (1.96-9.15); NEUTROPHILS PERCENT AUTO 60 % (41-73); Platelet Count 203 K/mm3 (150-400); RDW Coefficient Variation 15.9 % (11.7-14.2); RDW Standard Deviation 48.5 fL (35.1-46.3); Red Blood Cell Count 4.99 M/mm3 (3.80-5.20); White Blood Cell Count 7.64 K/mm3 (4.00-11.30)
[2022-04-09 15:38] LABS: Albumin, Blood 3.3 g/dL (3.4-5.0); Albumin/Globulin Ratio 0.7 (0.8-1.8); Bilirubin, Total 0.6 mg/dL (0.1-1.0); Bun/Creatinine Ratio 11.6 (12.0-20.0); Calcium, Blood 9.3 mg/dL (8.5-10.1); Creatinine, Blood 0.78 mg/dL (0.40-1.00); Globulin, Blood 4.6 g/dL (2.2-4.0); Potassium, Blood 3.6 mmol/L (3.5-5.5); Total Protein, Blood 7.9 g/dL (6.4-8.2)
== END 2022-04-09 18:35 | disposition home or self-care (01) ==
LOC: ER 14:15
PROVIDERS: Physician Assistant
DX: R07.9 Chest pain, unspecified (principal); F41.9 Anxiety disorder, unspecified; I10 Essential (primary) hypertension; J44.9 Chronic obstructive pulmonary disease, unspecified; F17.210 Nicotine dependence, cigarettes, uncomplicated; Z79.899 Other long term (current) drug therapy; Z88.0 Allergy status to penicillin; Z88.5 Allergy status to narcotic agent; Z88.8 Allergy status to other drugs, medicaments and biological substances
CPT/HCPCS: 36415; 71046; 80053; 83690; 84484; 85025; 93005; 93010; 99285-25

== ENCOUNTER 2022-10-01 08:30 | Day surgery (SDC) | payer OTHER ==
[~2022-10-01] VITALS: Ht 157.5 cm; Wt 49.3 kg
[2022-10-01] MEDS ORDERED: ANORO ELLIPTA1 EACH (09:13)
[2022-10-01] MEDS ORDERED: Vitamin C100 M1 (09:13)
[2022-10-01] MEDS ORDERED: ERGO400 (09:14)
[2022-10-01] MEDS ORDERED: Calcium Acetat667 MG (09:14)
[2022-10-01] MEDS ORDERED: Bentyl10 MG (09:14)
[2022-10-01] MEDS ORDERED: DIPATR (09:15)
[2022-10-01] MEDS ORDERED: ONDA4ODT (09:16)
[2022-10-01] MEDS ORDERED: OXYC5 (09:16)
[2022-10-01] MEDS ORDERED: Premarin0.3 MG (09:16)
[2022-10-01] MEDS ORDERED: PROM12.5S (09:16)
== END 2022-10-01 11:11 | disposition home or self-care (01) ==
LOC: ORSCSDS 08:30
PROVIDERS: Internal Medicine Gastroenterology
PROC: 0DJ08ZZ Inspection of Upper Intestinal Tract, Via Natural or Artificial Opening Endoscopic (ICD-10-PCS; principal; 2022-10-01 09:45)
DX: R13.12 Dysphagia, oropharyngeal phase (principal); K31.84 Gastroparesis; K74.69 Other cirrhosis of liver; I10 Essential (primary) hypertension; F41.9 Anxiety disorder, unspecified; F03.90 Unspecified dementia, unspecified severity, without behavioral disturbance, psychotic disturbance, mood disturbance, and anxiety; R56.9 Unspecified convulsions; E03.9 Hypothyroidism, unspecified; F43.10 Post-traumatic stress disorder, unspecified; J44.9 Chronic obstructive pulmonary disease, unspecified
CPT/HCPCS: J2704; J7120

== ENCOUNTER 2023-02-13 19:06 | Emergency (ER) | payer OTHER ==
[~2023-02-13] VITALS: Ht 157.5 cm; Wt 47.6 kg
[~2023-02-13 19:06] MED LIST changes: +ANORO ELLIPTA1 EACH; +Calcium Acetat667 MG; +DIPATR; +ERGO400; +ONDA4ODT; +OXYC5; +PROM12.5S; +Premarin0.3 MG; +Vitamin C100 M1
[2023-02-13 19:47] LABS: BASOPHILS ABSOLUTE AUTO 0.04 K/mm3 (0.00-0.23); BASOPHILS PERCENT AUTO 0 % (0-2); EOSINOPHILS ABSOLUTE AUTO 0.05 K/mm3 (0.00-0.68); EOSINOPHILS PERCENT AUTO 1 % (0-6); Hematocrit 33.4 % (33.0-51.0); Hemoglobin 10.9 g/dL (11.5-16.0); IMMATURE GRAN ABSOLUTE AUTO 0.03 K/mm3 (0.00-0.10); IMMATURE GRAN PERCENT AUTO 0 % (0-1); LYMPHOCYTES ABSOLUTE AUTO 2.29 K/mm3 (0.84-5.20); LYMPHOCYTES PERCENT AUTO 25 % (21-46); MONOCYTES ABSOLUTE AUTO 0.79 K/mm3 (0.16-1.47); MONOCYTES PERCENT AUTO 9 % (4-13); Mean Corpuscular HGB 26.8 pg (26.0-34.0); Mean Corpuscular HGB Conc 32.6 g/dL (31.5-36.5); Mean Corpuscular Volume 82 fL (80-100); NEUTROPHILS ABSOLUTE AUTO 5.93 K/mm3 (1.96-9.15); NEUTROPHILS PERCENT AUTO 65 % (41-73); Platelet Count 154 K/mm3 (150-400); RDW Coefficient Variation 16.8 % (11.7-14.2); RDW Standard Deviation 50.4 fL (35.1-46.3); Red Blood Cell Count 4.06 M/mm3 (3.80-5.20); White Blood Cell Count 9.13 K/mm3 (4.00-11.30)
[2023-02-13 20:03] LABS: Albumin/Globulin Ratio 0.7 (0.8-1.8); Bilirubin, Total 0.6 mg/dL (0.1-1.0); Bun/Creatinine Ratio 10.1 (12.0-20.0); Calcium, Blood 8.8 mg/dL (8.5-10.1); Creatinine, Blood 0.7 mg/dL (0.40-1.00); Globulin, Blood 4.4 g/dL (2.2-4.0); Potassium, Blood 3.6 mmol/L (3.5-5.5); Total Protein, Blood 7.4 g/dL (6.4-8.2)
== END 2023-02-13 21:58 | disposition home or self-care (01) ==
LOC: ER 19:06
PROVIDERS: Student in an Organized Health Care Education/Training Program
DX: R07.89 Other chest pain (principal); I10 Essential (primary) hypertension; E03.9 Hypothyroidism, unspecified; J44.9 Chronic obstructive pulmonary disease, unspecified; F17.210 Nicotine dependence, cigarettes, uncomplicated; Z88.0 Allergy status to penicillin; Z88.5 Allergy status to narcotic agent; Z88.8 Allergy status to other drugs, medicaments and biological substances; Z79.899 Other long term (current) drug therapy; Z79.890 Hormone replacement therapy
CPT/HCPCS: 71045; 80053; 83880; 84484; 85025; 93005; 93010; 99285-25

== ENCOUNTER → 2023-03-14 | Outpatient (CLI) | payer OTHER ==
[2023-03-18 11:15] LABS: Stool Occult Bld Immuno 1 Negative (NEGATIVE)
== END | disposition home or self-care (01) ==
LOC: LAB 11:00 → LAB SHORT 11:00
PROVIDERS: Student in an Organized Health Care Education/Training Program
DX: R63.4 Abnormal weight loss (principal)
CPT/HCPCS: 82274

== ENCOUNTER → 2023-07-23 | Outpatient (CLI) | payer OTHER ==
[~2023-07-23] MED LIST changes: +CEFD300 PO; +DICY20 PO
== END | disposition home or self-care (01) ==
LOC: LAB 11:42 → LAB SHORT 11:42
DX: R30.0 Dysuria (principal)
CPT/HCPCS: 87077; 87086; 87186

== ENCOUNTER 2023-09-21 17:35 | Emergency (ER) | payer OTHER ==
[~2023-09-21] VITALS: Ht 157.5 cm; Wt 41.7 kg
[~2023-09-21 17:35] MED LIST changes: +EFFEXOR XR150 MG PO; +NICO21TP TOP; +NICODERM CQ TOP; -OXYC5; -Robaxin-750750 MG PO; +Venlafaxine HCl75 MG PO
[2023-09-21 18:01] LABS: Hematocrit 33.6 % (33.0-51.0); Hemoglobin 10.9 g/dL (11.5-16.0); Mean Corpuscular HGB 27.2 pg (26.0-34.0); Mean Corpuscular HGB Conc 32.4 g/dL (31.5-36.5); Mean Corpuscular Volume 84 fL (80-100); Mean Platelet Volume 12.5 fL (9.1-12.4); Platelet Count 137 K/mm3 (150-400); RDW Coefficient Variation 17.3 % (11.7-14.2); RDW Standard Deviation 53.3 fL (35.1-46.3); Red Blood Cell Count 4.01 M/mm3 (3.80-5.20); White Blood Cell Count 8.01 K/mm3 (4.00-11.30)
[2023-09-21 18:21] LABS: BASOPHILS PERCENT MAN 0 % (0-2); EOSINOPHILS ABSOLUTE MAN 0.08 K/mm3 (0.00-0.68); EOSINOPHILS PERCENT MAN 1 % (0-6); LYMPHOCYTES ABSOLUTE MAN 2.56 K/mm3 (0.84-5.20); LYMPHOCYTES PERCENT MAN 32 % (21-46); MONOCYTES PERCENT MAN 10 % (4-13); NEUTROPHILS ABSOLUTE MAN 4.56 K/mm3 (1.96-9.15); SEG NEUTROPHILS PERCENT MAN 57 % (41-73); TOTAL CELLS COUNTED 100
[2023-09-21 18:25] LABS: Albumin, Blood 2.9 g/dL (3.4-5.0); Albumin/Globulin Ratio 0.8 (0.8-1.8); Bilirubin, Total 0.4 mg/dL (0.1-1.0); Bun/Creatinine Ratio 6.9 (12.0-20.0); Calcium, Blood 8.3 mg/dL (8.5-10.1); Creatinine, Blood 0.87 mg/dL (0.40-1.00); Globulin, Blood 3.8 g/dL (2.2-4.0); Potassium, Blood 3.5 mmol/L (3.5-5.5); Total Protein, Blood 6.7 g/dL (6.4-8.2)
[2023-09-21 22:17] LABS: Magnesium, Blood 1.9 mg/dL (1.6-2.4)
[2023-09-21 22:19] LABS: Thyroid Stimulating Hormone 0.82 uIU/mL (0.360-4.800)
[2023-09-22 00:24] LABS: Influenza A, PCR NEGATIVE (NEGATIVE); Influenza B, PCR NEGATIVE (NEGATIVE); Resp Syncytial Virus, PCR NEGATIVE (NEGATIVE); SARS-Cov-2 (COVID-19) PCR, MMC NEGATIVE (NEGATIVE)
[2023-09-22 01:30] VITALS: BP 124/87
[2023-09-22 01:30] LABS: Source, Urine Clean Catch
[2023-09-22 01:38] LABS: Bilirubin, Urine Neg (Neg); Blood, Urine Neg (Neg); Glucose Qualitative, Urine Neg (Neg); Ketones, Urine Neg (Neg); Leukocyte Esterase, Urine 1+ (Neg); Nitrite, Urine Neg (Neg); Protein, Urine 1+ (Neg); Specific Gravity, Urine 1.015 (1.003-1.022); Urobilinogen, Urine NORM (Normal)
[2023-09-22 01:43] LABS: Appearance, Urine Clear (Clear); Color, Urine Yellow (P-Yellow)
[2023-09-22 01:44] LABS: Bacteria Few /hpf; Red Blood Cells, Urine 0-2 /hpf (0-2); Squamous Epithelial Cells Few /hpf (Few); White Blood Cells, Urine 0-2 /hpf (0-5)
== END 2023-09-22 02:20 | disposition home or self-care (01) ==
LOC: ER 17:35
PROVIDERS: Emergency Medicine; Physician Assistant
DX: E86.0 Dehydration (principal); I10 Essential (primary) hypertension; G40.909 Epilepsy, unspecified, not intractable, without status epilepticus; E03.9 Hypothyroidism, unspecified; Z11.52 Encounter for screening for COVID-19; J44.9 Chronic obstructive pulmonary disease, unspecified; G89.4 Chronic pain syndrome; R29.6 Repeated falls; F17.210 Nicotine dependence, cigarettes, uncomplicated; Z79.891 Long term (current) use of opiate analgesic; Z79.899 Other long term (current) drug therapy
CPT/HCPCS: 0241U; 70450; 71045; 72125; 72131; 80053; 81001; 83605; 83735; 84100; 84443; 85025; 87086; 93005; 93010; 96360; 99285-25; A9270; J7030

== ENCOUNTER 2023-10-20 18:08 | Emergency (ER) | payer OTHER ==
[~2023-10-20] VITALS: Ht 157.5 cm; Wt 36.3 kg
[2023-10-20 19:18] LABS: Hematocrit 39.6 % (33.0-51.0); Hemoglobin 13.6 g/dL (11.5-16.0); Mean Corpuscular HGB 27.5 pg (26.0-34.0); Mean Corpuscular HGB Conc 34.3 g/dL (31.5-36.5); Mean Corpuscular Volume 80 fL (80-100); Platelet Count 147 K/mm3 (150-400); RDW Coefficient Variation 15.8 % (11.7-14.2); RDW Standard Deviation 45.8 fL (35.1-46.3); Red Blood Cell Count 4.94 M/mm3 (3.80-5.20)
[2023-10-20 19:19] LABS: Mean Platelet Volume 12.5 fL (9.1-12.4)
[2023-10-20 19:39] LABS: BASOPHILS PERCENT MAN 0 % (0-2); EOSINOPHILS PERCENT MAN 0 % (0-6); LYMPHOCYTES ABSOLUTE MAN 1.39 K/mm3 (0.84-5.20); LYMPHOCYTES PERCENT MAN 12 % (21-46); MONOCYTES ABSOLUTE MAN 0.58 K/mm3 (0.16-1.47); MONOCYTES PERCENT MAN 5 % (4-13); NEUTROPHILS ABSOLUTE MAN 9.62 K/mm3 (1.96-9.15); SEG NEUTROPHILS PERCENT MAN 83 % (41-73); TOTAL CELLS COUNTED 100
[2023-10-20 20:05] LABS: Albumin, Blood 3.8 g/dL (3.4-5.0); Albumin/Globulin Ratio 0.7 (0.8-1.8); Bilirubin, Total 0.6 mg/dL (0.1-1.0); Bun/Creatinine Ratio 35.2 (12.0-20.0); Calcium, Blood 9.5 mg/dL (8.5-10.1); Creatinine, Blood 0.51 mg/dL (0.40-1.00); Globulin, Blood 5.1 g/dL (2.2-4.0); Potassium, Blood 3.6 mmol/L (3.5-5.5); Total Protein, Blood 8.9 g/dL (6.4-8.2)
[2023-10-20] MEDS ORDERED: Magnesium Citr296 ML PO (23:42)
[2023-10-20] MEDS ORDERED: Magic Bullet10 MG PR (23:42)
[2023-10-21 00:13] VITALS: BP 164/109
== END 2023-10-21 00:18 | disposition home or self-care (01) ==
LOC: ER 18:08
PROVIDERS: Emergency Medicine
DX: K59.00 Constipation, unspecified (principal); I10 Essential (primary) hypertension; J44.9 Chronic obstructive pulmonary disease, unspecified; E03.9 Hypothyroidism, unspecified; G40.909 Epilepsy, unspecified, not intractable, without status epilepticus; F17.210 Nicotine dependence, cigarettes, uncomplicated; Z79.899 Other long term (current) drug therapy; Z88.5 Allergy status to narcotic agent; Z88.0 Allergy status to penicillin; Z88.6 Allergy status to analgesic agent
CPT/HCPCS: 74177; 80053; 85025; 99284-25; A9270; Q9967

== ENCOUNTER → 2024-07-28 | Outpatient (CLI) | payer OTHER ==
[~2024-07-28] MED LIST changes: +Magic Bullet10 MG PR; +Magnesium Citr296 ML PO; +PROM25
[2024-07-28 19:18] LABS: Appearance, Urine Hazy (Clear); Bilirubin, Urine Neg (Neg); Blood, Urine Neg (Neg); Color, Urine Yellow (P-Yellow); Glucose Qualitative, Urine Neg (Neg); Ketones, Urine Neg (Neg); Leukocyte Esterase, Urine 3+ (Neg); Nitrite, Urine Neg (Neg); Protein, Urine 2+ (Neg); Urobilinogen, Urine 1+ (Normal)
[2024-07-28 19:27] LABS: Squamous Epithelial Cells Mod /hpf (Few); Transitional Epithelial Cells Few /hpf (0-Rare); White Blood Cells, Urine 25-50 /hpf (0-5)
[2024-07-28 19:28] LABS: Bacteria Mod /hpf; Yeast/Fungi Urine Rare /hpf
== END | disposition home or self-care (01) ==
LOC: LAB 19:01 → LAB SHORT 19:01
PROVIDERS: Student in an Organized Health Care Education/Training Program
DX: R10.9 Unspecified abdominal pain (principal)
CPT/HCPCS: 81001

== ENCOUNTER → 2025-10-27 | Outpatient (CLI) | payer OTHER ==
[2025-10-27 17:43] LABS: Hematocrit 37.7 % (33.0-51.0); Hemoglobin 12.1 g/dL (11.5-16.0); Mean Corpuscular HGB Conc 32.1 g/dL (31.5-36.5); Mean Corpuscular Volume 88 fL (80-100); NRBC ABSOLUTE 0.00 K/mm3 (0.00-0.02); NRBC Auto 0.0 /100 WBC (0.0-0.2); Platelet Count 138 K/mm3 (150-400); RDW Coefficient Variation 17.1 % (11.7-14.2); RDW Standard Deviation 54.8 fL (35.1-46.3)
[2025-10-27 18:22] LABS: C-REACTIVE PROTEIN, EXT RANGE <0.290 mg/dL (0.000-0.300)
[2025-10-27 18:33] LABS: Alanine Aminotransfer (ALT/SGP 21 U/L (12-78); Albumin, Blood 3.3 g/dL (3.4-5.0); Albumin/Globulin Ratio 0.8 (0.8-1.8); Anion Gap 7 mmol/L (3-11); Aspartate Aminotrans (AST/SGOT 14 U/L (12-37); Bilirubin, Total 0.4 mg/dL (0.1-1.0); Blood Urea Nitrogen 20 mg/dL (8-24); CO2, Blood 26 mmol/L (21-32); Calcium, Blood 8.8 mg/dL (8.5-10.1); Chloride, Blood 112 mmol/L (98-108); Creatinine, Blood 0.74 mg/dL (0.40-1.00); Globulin, Blood 4.0 g/dL (2.2-4.0); Glucose, Blood 100 mg/dL (70-99); Potassium, Blood 3.8 mmol/L (3.5-5.5); Sodium, Blood 141 mmol/L (136-145); Total Protein, Blood 7.3 g/dL (6.4-8.2)
[2025-10-29 22:30] LABS: RHEUMATOID FACTOR <10 IU/mL (0-14)
[2025-10-29 22:38] LABS: ANTI-NUCLEAR AB ANA,IGG ELISA None Detected (None Detected)
== END ==
LOC: LAB SHORT 17:18 → LAB 17:18
DX: M19.041 Primary osteoarthritis, right hand (principal); M19.042 Primary osteoarthritis, left hand; E03.9 Hypothyroidism, unspecified
CPT/HCPCS: 80053; 85027; 85651; 86038; 86140; 86431